=== PATIENT | male | born 1970 | race Hispanic/Latino ===

== ENCOUNTER 2017-01-10 09:29 | Inpatient (IN) | payer OTHER ==
[2017-01-10 09:32] VITALS: BMI 33.2
[2017-01-10] MEDS ORDERED: Sodium Chloride 0.9% 1,000 ML IV STA (09:49)
[2017-01-10 10:29] LABS: BASO # 0.1 K/uL (0.0-0.2); BASO % 1.7 % (0.0-2.0); EOS # 0.2 K/uL (0.0-0.7); EOS % 2.3 % (0.0-4.0); LYMPH # 2.3 K/uL (1.0-4.3); LYMPH % 29.4 % (20.0-40.0); MEAN CELL VOLUME 91.4 fl (80.0-94.0); MEAN CORPUSCULAR HEMOGLOBIN 35.8 pg (27.0-31.0); MEAN CORPUSCULAR HGB CONC 39.2 g/dL (33.0-37.0); MEAN PLATELET VOLUME 11.7 fl (7.2-11.7); MONO # 0.9 K/uL (0.0-0.8); MONO % 11.2 % (0.0-10.0); NEUT # 4.4 K/uL (1.8-7.0); NEUT % 55.4 % (50.0-75.0); NRBC % 0.2 % (0.0-0.0); RBC 4.79 Mil/uL (4.40-5.90); RED CELL DISTRIBUTION WIDTH 14.7 % (11.5-14.5)
--- NOTE | 2017-01-10 10:40 | ED PDOC ---
HPI: Abdomen Time Seen by Provider: 01/10/17 09:40 Chief Complaint (Nursing): Abdominal Pain Chief Complaint (Provider): "Pancreatitis started bothering him" History Per: Patient History/Exam Limitations: no limitations Onset/Duration Of Symptoms: Hrs Outside of [place] travel?: No Current Symptoms Are (Timing): Still Present Additional Complaint(s): George Beatty, a 46 year old male, presents to the ED complaining of abdominal pain. The patients states that he thinks it is his pancreatitits ' acting up". He states that he is currently not taking any pancreatic enzymes. The patient reports he has vomited and he is feeling nauseous. Denies diarrhea, bloody stools, fever, chills, bloody urine. Past Medical History Reviewed: Historical Data, Nursing Documentation, Vital Signs Vital Signs: Last Vital Signs Temp 97.6 F 01/10/17 09:33 Pulse 86 01/10/17 09:33 Resp 18 01/10/17 09:33 BP 173/76 H 01/10/17 09:33 Pulse Ox 98 01/10/17 10:45 - Medical History PMH: Pancreatitis (X2) Denies: HIV - Surgical History Surgical History: No Surg Hx - Family History Family History: States: Unknown Family Hx - Social History Current smoker - smoking cessation education provided: Yes (Wears a patch at work) Alcohol: None - Home Medications Home Medications: Ambulatory Orders Medication Instructions Recorded Aspirin [Aspirin Chewable] 81 mg PO DAILY 06/14/16 Amoxicillin/Clavulanate [Augmentin 1 tab PO BID #10 tab 06/19/16 875 MG-125 MG] GlipiZIDE SR [Glucotrol XL] 5 mg PO BRK #30 tab 06/19/16 - Allergies Allergies/Adverse Reactions: Allergies Allergy/AdvReac Type Severity Reaction Status Date / Time clams Allergy VOMITING Verified 01/10/17 09:34 Review of Systems Constitutional: Negative for: Fever, Chills Gastrointestinal: Positive for: Nausea, Vomiting, Abdominal Pain. Negative for : Diarrhea, Hematochezia Genitourinary Male: Negative for: Hematuria Physical Exam - Reviewed Nursing Documentation Reviewed: Yes Vital Signs Reviewed: Yes - Physical Exam Appears: Positive for: Non-toxic, In Acute Distress Head Exam: Positive for: ATRAUMATIC, NORMAL INSPECTION, NORMOCEPHALIC Skin: Positive for: Normal Color, Warm, Dry Eye Exam: Positive for: Normal appearance, EOMI, PERRL ENT: Positive for: Normal ENT Inspection Neck: Positive for: Normal, Painless ROM, Supple Cardiovascular/Chest: Positive for: Regular Rate, Rhythm, Chest Non Tender. Negative for: Bradycardia, Tachycardia Respiratory: Positive for: Normal Breath Sounds. Negative for: Wheezing, Respiratory Distress Gastrointestinal/Abdominal: Positive for: Tenderness (Exquisite tenderness to LLQ; Mild tenderness to RLQ.), Distended. Negative for: Bowel Sounds Back: Positive for: Normal Inspection Extremity: Positive for: Normal ROM. Negative for: Tenderness, Pedal Edema, Deformity, Swelling Neurologic/Psych: Positive for: Alert, Oriented, Gait - Laboratory Results Result Diagrams: 01/10/17 10:44 01/10/17 10:44 - ECG O2 Sat by Pulse Oximetry: 98 (RA) Pulse Ox Interpretation: Normal Medical Decision Making Medical Decision Makin Initial Impression: 46 year old male presenting with abdominal pain in setting of known pancreatitis Initial Plan: * CMP * Lipase * Udip * CBC * Obstructive Series * Toradol 30mg IV * Morphine 4mg IV * NS 1000mls IV 1000mls/hr * Zofran 4mg IVP * US Abdomen Complete * Reevaluation Scribe Attestation Documented by Anita Rogel acting as a scribe for Rhiannon Ward MD. Provider Attestation: All medical record entries made by the Scribe were at my direction and personally dictated by me. I have reviewed the chart and agree that the record accurately reflects my personal performance of the history, physical exam, medical decision making, and the department course for this patient. I have also personally directed, reviewed, and agree with the discharge instructions and disposition. Disposition - Clinical Impression Clinical Impression: Pancreatitis, acute - Patient ED Disposition Is Patient to be Admitted: Yes Doctor Will See Patient In The: Office Counseled Patient/Family Regarding: Diagnosis, Need For Followup - Disposition Disposition: Transfer of Care Disposition Time: 13:00 Condition: STABLE - Pt Status Changed To: Hospital Disposition Of: Inpatient - Admit Certification Admit to Inpatient:: After my assessment, the patient will require hospitalization for at least two midnights. This is because of the severity of symptoms shown, intensity of services needed, and/or the medical risk in this patient being treated as an outpatient. - POA Present On Arrival: None
[2017-01-10 11:02] LABS: ALB/GLOB RATIO 1.3 (1.0-2.1); ALBUMIN 5.4 g/dL (3.5-5.0); ALT/SGPT 55 U/L (21-72); AST/SGOT 111 U/L (17-59); BLOOD UREA NITROGEN 22 mg/dl (9-20); CALCIUM 8.9 mg/dL (8.4-10.2); GFR AFRICAN-AMERICAN > 60; GFR NON-AFRICAN AMERICAN > 60; LIPASE 1756 U/L (23-300)
[2017-01-10 11:30] LABS: HEMOGLOBIN 17.1 g/dL (12.0-18.0)
[2017-01-10 11:33] LABS: BASO # 0.1 K/uL (0.0-0.2); BASO % 0.6 % (0.0-2.0); EOS # 0.2 K/uL (0.0-0.7); EOS % 1.9 % (0.0-4.0); HEMOGLOBIN 16.7 g/dL (12.0-18.0); LYMPH # 2.3 K/uL (1.0-4.3); LYMPH % 23.9 % (20.0-40.0); MEAN CELL VOLUME 90.1 fl (80.0-94.0); MEAN CORPUSCULAR HEMOGLOBIN 34.1 pg (27.0-31.0); MEAN CORPUSCULAR HGB CONC 37.8 g/dL (33.0-37.0); MEAN PLATELET VOLUME 11.1 fl (7.2-11.7); MONO # 0.5 K/uL (0.0-0.8); MONO % 5.2 % (0.0-10.0); NEUT # 6.6 K/uL (1.8-7.0); NEUT % 68.4 % (50.0-75.0); NRBC % 0.4 % (0.0-0.0); RBC 4.91 Mil/uL (4.40-5.90); RED CELL DISTRIBUTION WIDTH 13.3 % (11.5-14.5); WHITE BLOOD COUNT 9.6 K/uL (4.8-10.8)
--- NOTE | 2017-01-10 13:28 | US ---
HISTORY: history pancreatitis COMPARISON: Comparison made with CT scan of the abdomen and pelvis 06/17/2016. TECHNIQUE: Sonographic evaluation of the abdomen. FINDINGS: LIVER: Liver is enlarged measuring approximately 20 cm in CC dimension. Liver demonstrates smooth contour though increased echotexture likely representing fatty infiltration however other infiltrative hepatocellular disease process not excluded. . No obvious hepatic mass or collection. No ascites. GALLBLADDER: Gallbladder is physiologically distended. No evidence of intraluminal gallbladder calculi. No pericholecystic fluid collections or sonographic Gore sign. COMMON BILE DUCT: Measures 4.5 mm. No stones. No dilatation. PANCREAS: Pancreas is poorly delineated on this exam due to body habitus and bowel gas. RIGHT KIDNEY: Measures approximately 12.9 x 5.2 x 6.2cm. Normal echogenicity. No calculus, mass, or hydronephrosis. LEFT KIDNEY: Measures approximately 13.3 x 6.2 x 5.6cm. Normal echogenicity. No calculus, mass, or hydronephrosis. SPLEEN: Spleen is mildly enlarged measuring approximately 13.6 cm in greatest dimension AORTA: No aneurysmal dilatation. IVC: Unremarkable. OTHER FINDINGS: None. IMPRESSION: Mild hepatosplenomegaly. Probable mild fatty hepatic infiltration however other infiltrative hepatocellular disease process not excluded. Pancreas is not visualized on this study due to body habitus and bowel gas. No evidence of cholelithiasis or nephrolithiasis.
[2017-01-10] MEDS ORDERED: Iohexol 240 (50 ml) PO ONE (14:14)
--- NOTE | 2017-01-10 14:23 | RAD ---
PROCEDURE: Radiographs of the chest and abdomen (obstructive series) HISTORY: abdominal pain COMPARISON: No prior. TECHNIQUE: AP radiograph of the chest, with upright and supine radiographs of the abdomen. FINDINGS: CHEST: Poor inspiration with low lung volumes, mild crowded bronchovascular markings and mild bibasilar atelectasis. Additionally, the interstitial markings are slightly increased and coarsened with a few scattered peribronchial cuffing changes. Rule out sequela of reactive/inflammatory airway disease or viral illness. ABDOMEN AND PELVIS: No evidence of free intraperitoneal air seen under the diaphragmatic surfaces. Nonobstructive/nonspecific bowel gas pattern so far as can be seen. Note that fine soft tissue and bone detail is decreased due to underpenetration and possibly on moderate amount of intraperitoneal fat. Diminish the due to large abdominal pannus seen to better advantage on prior CT scan of the abdomen and pelvis. IMPRESSION: No focal consolidation however some minor bibasilar atelectasis noted. Rule out sequela of reactive/inflammatory airway disease or viral illness as above. No evidence of acute mechanical bowel obstruction so far as can be seen.
[2017-01-10] MEDS: Dextrose 5%/0.45% NS 1,000 ML IV SCH ×2 (16:02→22:45)
[2017-01-10] MEDS ORDERED: Iohexol 300 100 ML IJ ONE (16:10)
[2017-01-10] MEDS ORDERED: Sodium Chloride 0.9% 50 ML IV ONE (16:11)
[2017-01-10] MEDS ORDERED: Iohexol 240 (10 ml) ONE (16:30)
--- NOTE | 2017-01-10 17:38 | CT ---
PROCEDURE: CT abdomen pelvis dated 01/10/2017 HISTORY: abd pain, pancreatitis, persistent pain COMPARISON: None. TECHNIQUE: Contiguous axial images of the abdomen and pelvis performed following oral and intravenous injection of approximately 98 cc of Omnipaque 300 contrast n. Coronal and Sagittal reformats generated. Radiation dose: Total exam DLP = 1906.36 mGy-cm. This CT exam was performed using one or more of the following dose reduction techniques: Automated exposure control, adjustment of the mA and/or kV according to patient size, and/or use of iterative reconstruction technique. FINDINGS: LOWER THORAX: Unremarkable. LIVER: Liver is enlarged measuring approximately 21 cm in CC dimension. Significant fatty hepatic infiltration. There is some minor sparing of fatty infiltration around the gallbladder fossa. No obvious hepatic mass or collection. Portal and splenic veins are opacified. GALLBLADDER AND BILE DUCTS: Gallbladder is physiologically distended. No evidence of intraluminal gallbladder calculi. PANCREAS: Infiltration changes and fluid are seen within the mid peripancreatic mesentery. The pancreas is slightly edematous in appearance. Collective findings are consistent with ongoing pancreatitis. Note however the changes have improved when compared with the prior study. . No evidence of pancreatic pseudocysts or hemorrhagic collections. Infiltration changes and small amount of fluid extend into the splenic hilar region and anterior to the left kidney left para renal space. . There is also extension of these inflammatory changes anteriorly abutting the posterior wall of the stomach. Reactive edema of the posterior wall the stomach not excluded. SPLEEN: Spleen exhibits normal size and attenuation pattern without mass collection or calcification. ADRENALS: No adrenal lesions. KIDNEYS AND URETERS: Kidneys demonstrate symmetric nephrograms. No evidence of nephrolithiasis or hydronephrosis. No obvious renal mass or collection. Fluid and infiltration changes related to at aforementioned pancreatitis seen in the para renal spaces left greater than right. BLADDER: Urinary bladder is incompletely distended which may account for thick-walled appearance. Muscular hypertrophy may contribute. Rule out cystitis versus other intrinsic/invasive wall lesion. REPRODUCTIVE: Unremarkable. Prostate gland exhibits relatively normal size measuring approximately 3.5 cm in transverse dimension. There appears to be a few punctate prostatic calcifications. APPENDIX: Normal-appearing appendix BOWEL: Evaluation of the bowel is somewhat limited due to incomplete opacification. Stomach is distended with oral contrast material. Note that the inflammatory changes from the pancreas extend to the posterior wall of the stomach. Questionable wall thickening of the posterior wall of the stomach above possibly due to the aforementioned inflammatory process of the pancreas. Additionally, there is also mild wall thickening of the duodenum and proximal jejunum possibly reactive as well. Fluid is seen adjacent to the 3rd and 4th portions of the duodenum as well as anterior right para renal space PERITONEUM: As above. No gross free intraperitoneal air. Small fat containing left inguinal hernia. . LYMPH NODES: There are multiple small non scattered mesenteric lymph nodes VASCULATURE: Unremarkable. No aortic aneurysm. BONES: Mild multilevel degenerative spondylosis of the lower thoracic and lumbar spine. OTHER FINDINGS: None. IMPRESSION: Findings are consistent with ongoing pancreatitis with moderate amount of of peripancreatic infiltration and fluid does slightly improved from prior exam. Infiltration changes extend into the left splenic hilar region as well as both para renal spaces left greater than right. There is also extension anteriorly abutting the posterior wall of the stomach which is also slightly thickened possibly reactive in nature. There is wall thickening of the duodenum and proximal jejunum also felt to be reactive. Hepatomegaly with significant fatty infiltration. See above discussion for additional findings and details.
[2017-01-10] MEDS ORDERED: Insulin Regular 100 units/ml ONE (18:05)
[2017-01-10] MEDS: Insulin Lispro (humaLOG) 100 Units/ml Inj SC SCH ×2 (18:06→21:36)
--- NOTE | 2017-01-10 23:48 | CP.PCM.HP ---
History of Present Illness - History of Present Illness History of Present Illness: CC: Abdominal Pain History of Present Illness: A 46yoM with H/O On and off ETOH use presented with Abdominal pain, Epigastric and LUQ pain 10/10 continuous partially relieved with the pain medication he received in the ER. Also Associated N/Vomiting. +Abdominal bloating. Had BMV yesterdays. Passes flatus. Present on Admission - Present on Admission Any Indicators Present on Admission: No History of DVT/PE: No History of Uncontrolled Diabetes: Yes Urinary Catheter: No Decubitus Ulcer Present: No Review of Systems - Review of Systems All systems: reviewed and no additional remarkable complaints except - Gastrointestinal Gastrointestinal: As Per HPI, Abdominal Pain, Bloating, Nausea, Vomiting. absent: Diarrhea Past Patient History - Infectious Disease Hx of Infectious Diseases: None - Past Medical History & Family History Past Medical History?: Yes Past Family History: Reviewed and not pertinent - Past Social History Smoking Status: Light Smoker < 10 Cigarettes Daily Alcohol: Occasional Drugs: Denies - CARDIAC Hx Cardiac Disorders: No - ENDOCRINE/METABOLIC Hx Endocrine Disorders: Yes (DM- no meds for 2 months) Hx Diabetes Mellitus Type 2: Yes - HEMATOLOGICAL/ONCOLOGICAL Hx AIDS: No Hx Human Immunodeficiency Virus (HIV): No - MUSCULOSKELETAL/RHEUMATOLOGICAL Hx Musculoskeletal Disorders: No Hx Falls: No - GASTROINTESTINAL Hx Pancreatitis: Yes (X2) - GENITOURINARY/GYNECOLOGICAL Hx Genitourinary Disorders: No - PSYCHIATRIC Hx Psychophysiologic Disorder: No Hx Substance Use: No - SURGICAL HISTORY Hx Surgeries: Yes Other/Comment: Knee Surgery Right 8 years ago - ANESTHESIA Hx Anesthesia: Yes Hx Anesthesia Reactions: No Meds Home Medications: Home Medication List Medication Instructions Recorded Confirmed Type Fenofibrate [Tricor] 48 mg PO DAILY #30 tab 01/13/17 Rx SITagliptin [Januvia] 100 mg PO DAILY #30 tab 01/13/17 Rx Allergies/Adverse Reactions: Allergies Allergy/AdvReac Type Severity Reaction Status Date / Time clams Allergy VOMITING Verified 01/10/17 09:34 metformin Allergy RASH Verified 01/10/17 18:11 Physical Exam - Constitutional Appears: Well, In Acute Distress - Head Exam Head Exam: ATRAUMATIC, NORMAL INSPECTION, NORMOCEPHALIC - Eye Exam Eye Exam: EOMI, Normal appearance, PERRL Pupil Exam: NORMAL ACCOMODATION, PERRL - ENT Exam ENT Exam: Mucous Membranes Moist, Normal Exam - Neck Exam Neck exam: Positive for: Full Rom, Lymphadenopathy, Normal Inspection - Respiratory Exam Respiratory Exam: Clear to Auscultation Bilateral, NORMAL BREATHING PATTERN. absent: Rales, Wheezes - Cardiovascular Exam Cardiovascular Exam: Tachycardia, REGULAR RHYTHM, +S1, +S2 - GI/Abdominal Exam GI & Abdominal Exam: Distended, Guarding, Normal Bowel Sounds, Tenderness. absent: Rebound, Rigid - Extremities Exam Extremities exam: Positive for: full ROM, normal capillary refill, normal inspection - Back Exam Back exam: NORMAL INSPECTION. absent: CVA tenderness (L), CVA tenderness (R) - Neurological Exam Neurological exam: Alert, CN II-XII Intact, Normal Gait, Oriented x3, Reflexes Normal - Psychiatric Exam Psychiatric exam: Normal Affect, Normal Mood - Skin Skin Exam: Dry, Intact, Normal Color, Warm Results - Vital Signs Recent Vital Signs: Last Vital Signs Temp 98.2 F 01/10/17 18:55 Pulse 98 H 01/10/17 18:55 Resp 18 01/10/17 18:55 BP 120/76 01/10/17 18:55 Pulse Ox 99 01/10/17 18:55 - Labs Result Diagrams: 01/13/17 06:50 01/13/17 06:50 Labs: Laboratory Results - last 24 hr 01/10/17 01/10/17 01/10/17 15:00 17:30 21:12 Potassium 6.0 H 5.3 H POC Glucose (mg/dL) 236 H - Imaging and Cardiology CT Abdomen/Pelvis: Status: Report reviewed by me Additional comment: IMPRESSION: Findings are consistent with ongoing pancreatitis with moderate amount of of peripancreatic infiltration and fluid does slightly improved from prior exam. Infiltration changes extend into the left splenic hilar region as well as both para renal spaces left greater than right. There is also extension anteriorly abutting the posterior wall of the stomach which is also slightly thickened possibly reactive in nature. There is wall thickening of the duodenum and proximal jejunum also felt to be reactive. Hepatomegaly with significant fatty infiltration. See above discussion for additional findings and details. US - abdomen Status: Report reviewed by me Additional comment: IMPRESSION: Mild hepatosplenomegaly. Probable mild fatty hepatic infiltration however other infiltrative hepatocellular disease process not excluded. Pancreas is not visualized on this study due to body habitus and bowel gas. No evidence of cholelithiasis or nephrolithiasis. Chest x-ray Status: Report reviewed by me Additional comment: IMPRESSION: No focal consolidation however some minor bibasilar atelectasis noted. Rule out sequela of reactive/inflammatory airway disease or viral illness as above. No evidence of acute mechanical bowel obstruction so far as can be seen. Assessment & Plan (1) Pancreatitis, acute Assessment and Plan: Med/surge NPO IVF IV Dilaudid Lipid Profile GI Consult Status: Acute (2) Diabetes mellitus Assessment and Plan: Non-Compliant To medications and Follow UP Continue Glipizide Accucheck with SS Coverage q6hrs HgA1C Status: Chronic (3) Obesity Assessment and Plan: Counselled Diet Status: Chronic
[2017-01-11] MEDS: Dextrose 5%/0.45% NS 1,000 ML IV SCH ×3 (00:56→08:49)
[2017-01-11 07:43] LABS: BASO % 0.4 % (0.0-2.0); EOS # 0.2 K/uL (0.0-0.7); EOS % 1.4 % (0.0-4.0); HEMOGLOBIN 14.1 g/dL (12.0-18.0); LYMPH # 2.3 K/uL (1.0-4.3); LYMPH % 19.2 % (20.0-40.0); MEAN CELL VOLUME 90.5 fl (80.0-94.0); MEAN CORPUSCULAR HEMOGLOBIN 31.3 pg (27.0-31.0); MEAN CORPUSCULAR HGB CONC 34.6 g/dL (33.0-37.0); MEAN PLATELET VOLUME 9.6 fl (7.2-11.7); MONO # 0.9 K/uL (0.0-0.8); MONO % 7.3 % (0.0-10.0); NEUT # 8.7 K/uL (1.8-7.0); NEUT % 71.7 % (50.0-75.0); NRBC % 0.1 % (0.0-0.0); RBC 4.5 Mil/uL (4.40-5.90); RED CELL DISTRIBUTION WIDTH 12.9 % (11.5-14.5); WHITE BLOOD COUNT 12.1 K/uL (4.8-10.8)
[2017-01-11 07:49] LABS: MAGNESIUM 1.9 MG/DL (1.6-2.3)
[2017-01-11] MEDS: Enoxaparin 40 mg Syringe SC SCH (08:49)
[2017-01-11] MEDS: GlipiZIDE 5 mg SR Tab PO SCH (08:49)
[2017-01-11] MEDS: Insulin Lispro (humaLOG) 100 Units/ml Inj SC SCH ×5 (08:50→22:28)
--- NOTE | 2017-01-11 10:20 | CARD ---
APPROVED REPORT EKG Measurement Heart [id number] <Conclusion> Normal sinus rhythm Incomplete right bundle branch block Nonspecific T wave abnormality Abnormal ECG
--- NOTE | 2017-01-11 17:00 | CP.PCM.PN ---
Subjective - Date & Time of Evaluation Date of Evaluation: 01/11/17 Time of Evaluation: 17:00 - Subjective Subjective: Seen and Examined at the bed side. Still C/O Pain 8-10/10 , abdominal distention and not feeling hungry. Denies fever or chills. Objective - Vital Signs/Intake and Output Vital Signs (last 24 hours): Temp Pulse Resp BP Pulse Ox 99.2 F 102 H 20 107/70 95 01/11/17 16:24 01/11/17 16:24 01/11/17 16:24 01/11/17 16:24 01/11/17 16:24 - Medications Medications: Current Medications Aspirin (Aspirin Chewable) 81 mg PO DAILY [facility] Last Admin: 01/11/17 08:49 Dose: 81 mg Enoxaparin Sodium (Lovenox) 40 mg SC DAILY [facility] PRN Reason: Protocol Last Admin: 01/11/17 08:49 Dose: 40 mg Fenofibrate (Tricor) 48 mg PO DAILY [facility] Glipizide (Glucotrol Xl) 5 mg PO BRK [facility] Last Admin: 01/11/17 08:49 Dose: 5 mg Hydromorphone HCl (Dilaudid) 2 mg IVP Q4 PRN PRN Reason: Pain, severe (8-10) Last Admin: 01/11/17 13:36 Dose: 2 mg Dextrose/Sodium Chloride (Dextrose 5%/0.9% Ns 1000 Ml) 1,000 mls @ 125 mls/hr IV .Q8H [facility] Stop: 01/12/17 16:58 Insulin Human Lispro (Humalog) 0 units SC ACHS [facility] PRN Reason: Protocol Last Admin: 01/11/17 16:09 Dose: Not Given Morphine Sulfate (Morphine) 2 mg IVP Q4 PRN PRN Reason: Pain, severe (8-10) Ondansetron HCl (Zofran Inj) 4 mg IVP Q6 PRN PRN Reason: Nausea/Vomiting Last Admin: 01/11/17 08:50 Dose: 4 mg Pantoprazole Sodium (Protonix Inj) 40 mg IVP DAILY [facility] Last Admin: 01/11/17 08:49 Dose: 40 mg - Labs Labs: 01/11/17 06:00 01/10/17 17:30 - Constitutional Appears: In Acute Distress - Head Exam Head Exam: ATRAUMATIC, NORMAL INSPECTION, NORMOCEPHALIC - Eye Exam Eye Exam: EOMI, Normal appearance, PERRL Pupil Exam: NORMAL ACCOMODATION, PERRL - ENT Exam ENT Exam: Mucous Membranes Moist, Normal Exam - Neck Exam Neck Exam: Full ROM, Normal Inspection. absent: Lymphadenopathy - Respiratory Exam Respiratory Exam: Clear to Ausculation Bilateral, NORMAL BREATHING PATTERN - Cardiovascular Exam Cardiovascular Exam: Tachycardia, REGULAR RHYTHM, +S1, +S2. absent: Murmur - GI/Abdominal Exam GI & Abdominal Exam: Distended, Guarding, Tenderness, Normal Bowel Sounds - Extremities Exam Extremities Exam: Full ROM, Normal Capillary Refill, Normal Inspection. absent : Joint Swelling, Pedal Edema - Back Exam Back Exam: NORMAL INSPECTION. absent: CVA tenderness (L), CVA tenderness (R) - Neurological Exam Neurological Exam: Alert, Awake, CN II-XII Intact, Normal Gait, Oriented x3 Neuro motor strength exam: Left Upper Extremity: 5, Right Upper Extremity: 5, Left Lower Extremity: 5, Right Lower Extremity: 5 - Psychiatric Exam Psychiatric exam: Normal Affect, Normal Mood - Skin Skin Exam: Dry, Intact, Normal Color, Warm Assessment and Plan (1) Pancreatitis, acute Assessment & Plan: Continue Current Care Repeat CBCD/BMP/Lipase Status: Acute (2) Diabetes mellitus Assessment & Plan: Continue Current Care Status: Chronic (3) Obesity Assessment & Plan: Counselled Status: Chronic (4) Hypertriglyceridemia Assessment & Plan: Start Triglyceride Can be additional etiology for Pancreatitis Status: Acute
[2017-01-11] MEDS: Dextrose 5%/0.9% NS 1,000 ML IV SCH (17:19)
[2017-01-11 17:20] LABS: BASO # 0.1 K/uL (0.0-0.2); BASO % 0.5 % (0.0-2.0); EOS # 0.3 K/uL (0.0-0.7); EOS % 2.4 % (0.0-4.0); HEMOGLOBIN 13.6 g/dL (12.0-18.0); LYMPH % 25.2 % (20.0-40.0); MEAN CELL VOLUME 90.7 fl (80.0-94.0); MEAN CORPUSCULAR HEMOGLOBIN 31.4 pg (27.0-31.0); MEAN CORPUSCULAR HGB CONC 34.7 g/dL (33.0-37.0); MONO % 8.9 % (0.0-10.0); NEUT # 7.4 K/uL (1.8-7.0); NRBC % 0.1 % (0.0-0.0); RBC 4.32 Mil/uL (4.40-5.90); WHITE BLOOD COUNT 11.8 K/uL (4.8-10.8)
[2017-01-11 17:36] LABS: BLOOD UREA NITROGEN 14 mg/dl (9-20); CALCIUM 8.8 mg/dL (8.4-10.2); GFR AFRICAN-AMERICAN > 60; GFR NON-AFRICAN AMERICAN > 60; LIPASE 721 U/L (23-300)
[2017-01-11] MEDS: Morphine 4 MG/ML VIAL IVP PRN (22:04)
[2017-01-12] MEDS: Dextrose 5%/0.9% NS 1,000 ML IV SCH ×2 (01:22→17:05)
[2017-01-12] MEDS: Morphine 4 MG/ML VIAL IVP PRN (02:47)
[2017-01-12 07:08] LABS: BASO # 0.1 K/uL (0.0-0.2); BASO % 0.5 % (0.0-2.0); EOS # 0.3 K/uL (0.0-0.7); EOS % 3.2 % (0.0-4.0); HEMOGLOBIN 12.9 g/dL (12.0-18.0); LYMPH # 3.2 K/uL (1.0-4.3); LYMPH % 30.1 % (20.0-40.0); MEAN CELL VOLUME 91.8 fl (80.0-94.0); MEAN CORPUSCULAR HEMOGLOBIN 31.7 pg (27.0-31.0); MEAN CORPUSCULAR HGB CONC 34.5 g/dL (33.0-37.0); MEAN PLATELET VOLUME 9.5 fl (7.2-11.7); MONO # 1.2 K/uL (0.0-0.8); MONO % 11.2 % (0.0-10.0); NEUT # 5.8 K/uL (1.8-7.0); RBC 4.07 Mil/uL (4.40-5.90); RED CELL DISTRIBUTION WIDTH 12.8 % (11.5-14.5); WHITE BLOOD COUNT 10.6 K/uL (4.8-10.8)
[2017-01-12] MEDS: Insulin Lispro (humaLOG) 100 Units/ml Inj SC SCH ×4 (07:30→22:10)
[2017-01-12 08:08] LABS: BLOOD UREA NITROGEN 12 mg/dl (9-20); CALCIUM 8.7 mg/dL (8.4-10.2); GFR AFRICAN-AMERICAN > 60; GFR NON-AFRICAN AMERICAN > 60; LIPASE 476 U/L (23-300)
[2017-01-12] MEDS: GlipiZIDE 5 mg SR Tab PO SCH (08:48)
[2017-01-12] MEDS: Enoxaparin 40 mg Syringe SC SCH (10:04)
--- NOTE | 2017-01-12 13:15 | CP.PCM.CON ---
History of Present Illness - History of Present Illness History of Present Illness: 46 yo male with past history of pancreatitis coming to the ER with abdominal pain. He states he is not drinking alcohol but has been eating steak lately. 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 Review of Systems - Constitutional Constitutional: absent: Chills - EENT Eyes: absent: Blurred Vision Ears: absent: Decreased Hearing Nose/Mouth/Throat: absent: Epistaxis - Cardiovascular Cardiovascular: absent: Chest Pain - Respiratory Respiratory: absent: Dyspnea - Gastrointestinal Gastrointestinal: As Per HPI - Genitourinary Genitourinary: absent: Change in Urinary Stream Past Patient History - Infectious Disease Hx of Infectious Diseases: None - Past Medical History & Family History Past Medical History?: Yes - Past Social History Smoking Status: Light Smoker < 10 Cigarettes Daily - CARDIAC Hx Cardiac Disorders: No - ENDOCRINE/METABOLIC Hx Endocrine Disorders: Yes (DM- no meds for 2 months) Hx Diabetes Mellitus Type 2: Yes - HEMATOLOGICAL/ONCOLOGICAL Hx AIDS: No Hx Human Immunodeficiency Virus (HIV): No - MUSCULOSKELETAL/RHEUMATOLOGICAL Hx Musculoskeletal Disorders: No Hx Falls: No - GASTROINTESTINAL Hx Pancreatitis: Yes (X2) - GENITOURINARY/GYNECOLOGICAL Hx Genitourinary Disorders: No - PSYCHIATRIC Hx Psychophysiologic Disorder: No Hx Substance Use: No - SURGICAL HISTORY Hx Surgeries: Yes Other/Comment: Knee Surgery Right 8 years ago - ANESTHESIA Hx Anesthesia: Yes Hx Anesthesia Reactions: No Meds Allergies/Adverse Reactions: Allergies Allergy/AdvReac Type Severity Reaction Status Date / Time clams Allergy VOMITING Verified 01/10/17 09:34 metformin Allergy RASH Verified 01/10/17 18:11 - Medications Medications: Current Medications Aspirin (Aspirin Chewable) 81 mg PO DAILY [facility] Last Admin: 01/12/17 08:47 Dose: 81 mg Enoxaparin Sodium (Lovenox) 40 mg SC DAILY [facility] PRN Reason: Protocol Last Admin: 01/11/17 08:49 Dose: 40 mg Fenofibrate (Tricor) 48 mg PO DAILY [facility] Last Admin: 01/12/17 08:49 Dose: 48 mg Glipizide (Glucotrol Xl) 5 mg PO BRK [facility] Last Admin: 01/12/17 08:48 Dose: 5 mg Hydromorphone HCl (Dilaudid) 2 mg IVP Q4 PRN PRN Reason: Pain, severe (8-10) Last Admin: 01/12/17 08:44 Dose: 2 mg Dextrose/Sodium Chloride (Dextrose 5%/0.9% Ns 1000 Ml) 1,000 mls @ 125 mls/hr IV .Q8H [facility] Stop: 01/12/17 16:58 Last Admin: 01/12/17 01:22 Dose: 125 mls/hr Insulin Human Lispro (Humalog) 0 units SC ACHS [facility] PRN Reason: Protocol Last Admin: 01/12/17 07:30 Dose: 1 unit Morphine Sulfate (Morphine) 2 mg IVP Q4 PRN PRN Reason: Pain, severe (8-10) Last Admin: 01/12/17 02:47 Dose: 2 mg Ondansetron HCl (Zofran Inj) 4 mg IVP Q6 PRN PRN Reason: Nausea/Vomiting Last Admin: 01/11/17 08:50 Dose: 4 mg Pantoprazole Sodium (Protonix Inj) 40 mg IVP DAILY [facility] Last Admin: 01/12/17 08:49 Dose: 40 mg Physical Exam - Constitutional Appears: Well - Head Exam Head Exam: ATRAUMATIC - Eye Exam Eye Exam: Normal appearance - ENT Exam ENT Exam: Mucous Membranes Moist - Neck Exam Neck exam: Positive for: Normal Inspection - Respiratory Exam Respiratory Exam: Clear to Auscultation Bilateral - Cardiovascular Exam Cardiovascular Exam: REGULAR RHYTHM, +S1, +S2 - GI/Abdominal Exam GI & Abdominal Exam: Normal Bowel Sounds, Soft, Tenderness Additional comments: moderate epigastric tenderness Results - Vital Signs Recent Vital Signs: Last Vital Signs Temp 98 F 01/12/17 09:16 Pulse 75 01/12/17 09:16 Resp 20 01/12/17 09:16 BP 97/64 L 01/12/17 09:16 Pulse Ox 99 01/12/17 09:16 - Labs Result Diagrams: 01/12/17 06:00 01/12/17 06:00 Labs: Laboratory Results - last 24 hr 01/10/17 01/11/17 01/11/17 16:21 15:15 17:00 WBC 11.8 H RBC 4.32 L Hgb 13.6 Hct 39.2 MCV 90.7 MCH 31.4 H MCHC 34.7 RDW 13.0 Plt Count 138 MPV 9.0 Neut % (Auto) 63.0 Lymph % (Auto) 25.2 Amador % (Auto) 8.9 Eos % (Auto) 2.4 Baso % (Auto) 0.5 Neut # 7.4 H Lymph # 3.0 Amador # 1.0 H Eos # 0.3 Baso # 0.1 Sodium Potassium Chloride Carbon Dioxide Anion Gap BUN Creatinine Est GFR ( Amer) Est GFR (Non-Af Amer) POC Glucose (mg/dL) 165 H 113 H Random Glucose Hemoglobin A1c Calcium Lipase 01/11/17 01/11/17 01/11/17 17:00 18:00 22:00 WBC RBC Hgb Hct MCV MCH MCHC RDW Plt Count MPV Neut % (Auto) Lymph % (Auto) Amador % (Auto) Eos % (Auto) Baso % (Auto) Neut # Lymph # Amador # Eos # Baso # Sodium 138 Potassium 3.7 Chloride 102 Carbon Dioxide 30 Anion Gap 10 BUN 14 Creatinine 0.9 Est GFR ( Amer) > 60 Est GFR (Non-Af Amer) > 60 POC Glucose (mg/dL) 137 H Random Glucose 91 Hemoglobin A1c 8.3 H D Calcium 8.8 Lipase 721 H 01/12/17 01/12/17 01/12/17 05:24 06:00 06:00 WBC 10.6 RBC 4.07 L Hgb 12.9 Hct 37.4 MCV 91.8 MCH 31.7 H MCHC 34.5 RDW 12.8 Plt Count 130 MPV 9.5 Neut % (Auto) 55.0 Lymph % (Auto) 30.1 Amador % (Auto) 11.2 H Eos % (Auto) 3.2 Baso % (Auto) 0.5 Neut # 5.8 Lymph # 3.2 Amador # 1.2 H Eos # 0.3 Baso # 0.1 Sodium 141 Potassium 4.0 Chloride 105 Carbon Dioxide 27 Anion Gap 13 BUN 12 Creatinine 0.8 Est GFR ( Amer) > 60 Est GFR (Non-Af Amer) > 60 POC Glucose (mg/dL) 178 H Random Glucose 169 H Hemoglobin A1c Calcium 8.7 Lipase 476 H 01/12/17 10:52 WBC RBC Hgb Hct MCV MCH MCHC RDW Plt Count MPV Neut % (Auto) Lymph % (Auto) Amador % (Auto) Eos % (Auto) Baso % (Auto) Neut # Lymph # Amador # Eos # Baso # Sodium Potassium Chloride Carbon Dioxide Anion Gap BUN Creatinine Est GFR ( Amer) Est GFR (Non-Af Amer) POC Glucose (mg/dL) 179 H Random Glucose Hemoglobin A1c Calcium Lipase Assessment & Plan (1) Pancreatitis, acute Assessment and Plan: Acute pancreatitis possibly due to high fat diet. Lipase better today. Will start on clears. Continue IV hydration. Status: Acute
--- NOTE | 2017-01-12 17:54 | CP.PCM.PN ---
Subjective - Date & Time of Evaluation Date of Evaluation: 01/12/17 Time of Evaluation: 17:30 - Subjective Subjective: Seen and examined at the bed side. Still C/O Abdominal Pain but a little bit better to 8/10. Denies fever or chills. Tolerating clear liquid since morning. Objective - Vital Signs/Intake and Output Vital Signs (last 24 hours): Temp Pulse Resp BP Pulse Ox 98.7 F 85 18 126/85 97 01/12/17 16:30 01/12/17 16:30 01/12/17 16:30 01/12/17 16:30 01/12/17 16:30 - Medications Medications: Current Medications Aspirin (Aspirin Chewable) 81 mg PO DAILY [facility] Last Admin: 01/12/17 08:47 Dose: 81 mg Enoxaparin Sodium (Lovenox) 40 mg SC DAILY [facility] PRN Reason: Protocol Last Admin: 01/12/17 10:04 Dose: Not Given Fenofibrate (Tricor) 48 mg PO DAILY [facility] Last Admin: 01/12/17 08:49 Dose: 48 mg Hydromorphone HCl (Dilaudid) 2 mg IVP Q4 PRN PRN Reason: Pain, severe (8-10) Last Admin: 01/12/17 08:44 Dose: 2 mg Insulin Human Lispro (Humalog) 0 units SC ACHS [facility] PRN Reason: Protocol Last Admin: 01/12/17 17:03 Dose: Not Given Morphine Sulfate (Morphine) 2 mg IVP Q4 PRN PRN Reason: Pain, severe (8-10) Last Admin: 01/12/17 02:47 Dose: 2 mg Ondansetron HCl (Zofran Inj) 4 mg IVP Q6 PRN PRN Reason: Nausea/Vomiting Last Admin: 01/11/17 08:50 Dose: 4 mg Pantoprazole Sodium (Protonix Inj) 40 mg IVP DAILY [facility] Last Admin: 01/12/17 08:49 Dose: 40 mg Sitagliptin Phosphate (Januvia) 100 mg PO DAILY [facility] - Labs Labs: 01/12/17 06:00 01/12/17 06:00 - Constitutional Appears: In Acute Distress - Head Exam Head Exam: ATRAUMATIC, NORMAL INSPECTION, NORMOCEPHALIC - Eye Exam Eye Exam: EOMI, Normal appearance, PERRL Pupil Exam: NORMAL ACCOMODATION, PERRL - ENT Exam ENT Exam: Mucous Membranes Moist, Normal Exam - Neck Exam Neck Exam: Full ROM, Normal Inspection. absent: Lymphadenopathy - Respiratory Exam Respiratory Exam: Clear to Ausculation Bilateral, NORMAL BREATHING PATTERN - Cardiovascular Exam Cardiovascular Exam: REGULAR RHYTHM, +S1, +S2. absent: Murmur - GI/Abdominal Exam GI & Abdominal Exam: Distended, Guarding, Soft, Tenderness - Extremities Exam Extremities Exam: Full ROM, Normal Capillary Refill, Normal Inspection. absent : Joint Swelling, Pedal Edema - Back Exam Back Exam: Full ROM, NORMAL INSPECTION - Neurological Exam Neurological Exam: Alert, Awake, CN II-XII Intact, Normal Gait, Oriented x3 Neuro motor strength exam: Left Upper Extremity: 5, Right Upper Extremity: 5, Left Lower Extremity: 5, Right Lower Extremity: 5 - Psychiatric Exam Psychiatric exam: Normal Affect, Normal Mood - Skin Skin Exam: Dry, Intact, Normal Color, Warm Assessment and Plan (1) Pancreatitis, acute Assessment & Plan: Start Clear Liquid Diet Lipase Trending Down Continue Current Care Repeat CBC with Diff/BMP/Lipase Status: Acute (2) Diabetes mellitus Assessment & Plan: Continue Current Care Status: Chronic (3) Obesity Assessment & Plan: Counselled Status: Chronic (4) Hypertriglyceridemia Assessment & Plan: Start Triglyceride Can be additional Etiology for Pancreatitis Status: Acute
[2017-01-13 07:29] LABS: ALB/GLOB RATIO 1.2 (1.0-2.1); ALBUMIN 3.9 g/dL (3.5-5.0); ALT/SGPT 54 U/L (21-72); AMYLASE 106 U/L (30-110); AST/SGOT 27 U/L (17-59); BLOOD UREA NITROGEN 9 mg/dl (9-20); CALCIUM 9.2 mg/dL (8.4-10.2); GFR AFRICAN-AMERICAN > 60; GFR NON-AFRICAN AMERICAN > 60
[2017-01-13 07:42] LABS: BASO % 0.6 % (0.0-2.0); EOS # 0.4 K/uL (0.0-0.7); EOS % 5.3 % (0.0-4.0); HEMOGLOBIN 13.8 g/dL (12.0-18.0); LYMPH # 2.3 K/uL (1.0-4.3); LYMPH % 31.4 % (20.0-40.0); MEAN CELL VOLUME 91.5 fl (80.0-94.0); MEAN CORPUSCULAR HEMOGLOBIN 31.1 pg (27.0-31.0); MEAN PLATELET VOLUME 9.8 fl (7.2-11.7); MONO # 0.7 K/uL (0.0-0.8); MONO % 9.9 % (0.0-10.0); NEUT # 3.9 K/uL (1.8-7.0); NEUT % 52.8 % (50.0-75.0); NRBC % 0.1 % (0.0-0.0); RBC 4.43 Mil/uL (4.40-5.90); RED CELL DISTRIBUTION WIDTH 12.7 % (11.5-14.5); WHITE BLOOD COUNT 7.3 K/uL (4.8-10.8)
[2017-01-13 08:06] VITALS: BP 125/85; PULSE 74; RESP 20; TEMP 97.7; O2SAT 95
[2017-01-13] MEDS ORDERED: Dextrose 5%/0.9% NS 1,000 ML IV SCH (08:30)
[2017-01-13] MEDS: Enoxaparin 40 mg Syringe SC SCH ×2 (09:00→09:03)
[2017-01-13] MEDS: Insulin Lispro (humaLOG) 100 Units/ml Inj SC SCH (09:01)
--- NOTE | 2017-01-13 09:32 | CP.PCM.PN ---
Subjective - Date & Time of Evaluation Date of Evaluation: 01/13/17 Time of Evaluation: 09:30 - Subjective Subjective: Feeling better. Minimal abdominal discomfort. Objective - Vital Signs/Intake and Output Vital Signs (last 24 hours): Temp Pulse Resp BP Pulse Ox 97.7 F 74 20 125/85 95 01/13/17 08:06 01/13/17 08:06 01/13/17 08:06 01/13/17 08:06 01/13/17 08:06 - Medications Medications: Current Medications Aspirin (Aspirin Chewable) 81 mg PO DAILY [facility] Last Admin: 01/13/17 09:00 Dose: 81 mg Enoxaparin Sodium (Lovenox) 40 mg SC DAILY [facility] PRN Reason: Protocol Last Admin: 01/13/17 09:03 Dose: Not Given Fenofibrate (Tricor) 48 mg PO DAILY [facility] Last Admin: 01/13/17 09:00 Dose: 48 mg Hydromorphone HCl (Dilaudid) 2 mg IVP Q4 PRN PRN Reason: Pain, severe (8-10) Last Admin: 01/12/17 08:44 Dose: 2 mg Dextrose/Sodium Chloride (Dextrose 5%/0.9% Ns 1000 Ml) 1,000 mls @ 125 mls/hr IV .Q8H [facility] Stop: 01/14/17 08:27 Last Admin: 01/13/17 09:01 Dose: 125 mls/hr Insulin Human Lispro (Humalog) 0 units SC ACHS [facility] PRN Reason: Protocol Last Admin: 01/13/17 09:01 Dose: 2 unit Morphine Sulfate (Morphine) 2 mg IVP Q4 PRN PRN Reason: Pain, severe (8-10) Last Admin: 01/12/17 02:47 Dose: 2 mg Ondansetron HCl (Zofran Inj) 4 mg IVP Q6 PRN PRN Reason: Nausea/Vomiting Last Admin: 01/11/17 08:50 Dose: 4 mg Pantoprazole Sodium (Protonix Inj) 40 mg IVP DAILY [facility] Last Admin: 01/13/17 09:00 Dose: 40 mg Sitagliptin Phosphate (Januvia) 100 mg PO DAILY [facility] Last Admin: 01/13/17 09:00 Dose: 100 mg - Labs Labs: 01/13/17 06:50 01/13/17 06:50 - Head Exam Head Exam: ATRAUMATIC - ENT Exam ENT Exam: Mucous Membranes Moist - Neck Exam Neck Exam: Normal Inspection - Respiratory Exam Respiratory Exam: NORMAL BREATHING PATTERN - Cardiovascular Exam Cardiovascular Exam: REGULAR RHYTHM - GI/Abdominal Exam GI & Abdominal Exam: Soft, Normal Bowel Sounds. absent: Tenderness Assessment and Plan (1) Pancreatitis, acute Assessment & Plan: Amylase is normal and patient feels good. Advance to low fat diet now and at home. May be discharged. Status: Acute
--- NOTE | 2017-01-13 11:47 | CP.PCM.DIS ---
Provider - Provider Date of Admission: 01/10/17 13:21 Attending physician: Ahmet Viramontes MD Time Spent in preparation of Discharge (in minutes): 20 Hospital Course - Lab Results Lab Results: Most Recent Lab Values WBC 7.3 K/uL (4.8-10.8) 01/13/17 06:50 RBC 4.43 Mil/uL (4.40-5.90) 01/13/17 06:50 Hgb 13.8 g/dL (12.0-18.0) 01/13/17 06:50 Hct 40.5 % (35.0-51.0) 01/13/17 06:50 MCV 91.5 fl (80.0-94.0) 01/13/17 06:50 MCH 31.1 pg (27.0-31.0) H 01/13/17 06:50 MCHC 34.0 g/dL (33.0-37.0) 01/13/17 06:50 RDW 12.7 % (11.5-14.5) 01/13/17 06:50 Plt Count 146 K/uL (130-400) 01/13/17 06:50 MPV 9.8 fl (7.2-11.7) 01/13/17 06:50 Neut % (Auto) 52.8 % (50.0-75.0) 01/13/17 06:50 Lymph % (Auto) 31.4 % (20.0-40.0) 01/13/17 06:50 Drew % (Auto) 9.9 % (0.0-10.0) 01/13/17 06:50 Eos % (Auto) 5.3 % (0.0-4.0) H 01/13/17 06:50 Baso % (Auto) 0.6 % (0.0-2.0) 01/13/17 06:50 Neut # 3.9 K/uL (1.8-7.0) 01/13/17 06:50 Lymph # 2.3 K/uL (1.0-4.3) 01/13/17 06:50 Drew # 0.7 K/uL (0.0-0.8) 01/13/17 06:50 Eos # 0.4 K/uL (0.0-0.7) 01/13/17 06:50 Baso # 0.0 K/uL (0.0-0.2) 01/13/17 06:50 Sodium 143 mmol/l (132-148) 01/13/17 06:50 Potassium 4.3 MMOL/L (3.6-5.0) 01/13/17 06:50 Chloride 108 mmol/L (98-107) H 01/13/17 06:50 Carbon Dioxide 26 mmol/L (22-30) 01/13/17 06:50 Anion Gap 13 (10-20) 01/13/17 06:50 BUN 9 mg/dl (9-20) 01/13/17 06:50 Creatinine 0.8 mg/dL (0.8-1.5) 01/13/17 06:50 Est GFR ( Amer) > 60 01/13/17 06:50 Est GFR (Non-Af Amer) > 60 01/13/17 06:50 POC Glucose (mg/dL) 205 mg/dL (65-110) H 01/13/17 06:22 Random Glucose 178 mg/dL (75-110) H 01/13/17 06:50 Hemoglobin A1c 8.3 % (4.2-6.5) H D 01/11/17 18:00 Calcium 9.2 mg/dL (8.4-10.2) 01/13/17 06:50 Magnesium 1.9 MG/DL (1.6-2.3) 01/11/17 06:00 Total Bilirubin 0.7 mg/dl (0.2-1.3) 01/13/17 06:50 AST 27 U/L (17-59) 01/13/17 06:50 ALT 54 U/L (21-72) 01/13/17 06:50 Alkaline Phosphatase 67 U/L (38-126) 01/13/17 06:50 Lactate Dehydrogenase 429 U/L (313-618) 01/11/17 06:00 Total Protein 7.2 G/DL (6.3-8.2) 01/13/17 06:50 Albumin 3.9 g/dL (3.5-5.0) 01/13/17 06:50 Globulin 3.3 gm/dL (2.2-3.9) 01/13/17 06:50 Albumin/Globulin Ratio 1.2 (1.0-2.1) 01/13/17 06:50 Triglycerides 453 mg/DL (0-149) H D 01/11/17 06:00 Cholesterol 194 mg/dL (0-199) 01/11/17 06:00 LDL Cholesterol Direct 58 mg/dL (0-129) 01/11/17 06:00 HDL Cholesterol 44 MG/DL (30-70) 01/11/17 06:00 Amylase 106 U/L (30-110) 01/13/17 06:50 Lipase 476 U/L (23-300) H 01/12/17 06:00 - Hospital Course Hospital Course: A 46yoM with H/O DM, Pancreatitis and dyslipidemia presented with Abdominal pain /Vomting., and found to have acute Pancreatitis, and Rx with Pain Medicine, IVF , IV Zofran, Pain medication. felt better and tolerated Diet. Discharge Exam - Head Exam Head Exam: ATRAUMATIC - Eye Exam Eye Exam: EOMI, Normal appearance, PERRL Pupil Exam: NORMAL ACCOMODATION, PERRL - Cardiovascular Exam Cardiovascular Exam: +S1, +S2 - GI/Abdominal Exam GI & Abdominal Exam: Normal Bowel Sounds - Neurological Exam Neurological exam: Alert, CN II-XII Intact, Normal Gait, Oriented x3, Reflexes Normal - Psychiatric Exam Psychiatric exam: Normal Affect, Normal Mood - Skin Skin Exam: Dry, Intact, Normal Color, Warm Discharge Plan - Discharge Medications Prescriptions: SITagliptin [Januvia] 100 mg PO DAILY #30 tab Fenofibrate [Tricor] 48 mg PO DAILY #30 tab - Follow Up Plan Condition: STABLE Disposition: HOME/ ROUTINE Instructions: Pancreatitis (DC), Diabetes Mellitus Type 2 in Adults (DC) Additional Instructions: follow up with dr viramontes in 1 wk follow up with dr marmolejo in 1-2wks Referrals: Lui Marmolejo MD [Staff Provider] - Ahmet Viramontes MD [Staff Provider] -
== END 2017-01-13 10:06 | disposition home or self-care (01) | DRG 440 ==
LOC: H.ER 09:29 → H.ERHOLD 13:21 → H.MEDSURG1 18:46
PROVIDERS: ADMIT Internal Medicine; ATTEND Internal Medicine
DX: K85.90 Acute pancreatitis without necrosis or infection, unspecified (principal); R16.2 Hepatomegaly with splenomegaly, not elsewhere classified; E11.9 Type 2 diabetes mellitus without complications; E78.5 Hyperlipidemia, unspecified; R14.0 Abdominal distension (gaseous); F17.210 Nicotine dependence, cigarettes, uncomplicated; Z91.19 Patient's noncompliance with other medical treatment and regimen; E66.9 Obesity, unspecified; Z68.33 Body mass index [BMI] 33.0-33.9, adult

== ENCOUNTER 2017-07-03 12:39 | Inpatient (IN) | payer OTHER ==
[2017-07-03 12:39] VITALS: BMI 33.2
[2017-07-03] MEDS ORDERED: Sodium Chloride 0.9% 1,000 ML IV STA (12:56)
[2017-07-03 13:09] LABS: VENOUS BLOOD GAS BASE EXCESS -1.4 mmol/L (0.0-2.0); VENOUS BLOOD GAS PCO2 37 mmHg (40-60); VENOUS BLOOD GAS PO2 44 mm/Hg (30-55)
--- NOTE | 2017-07-03 13:17 | ED PDOC ---
HPI: Abdomen Time Seen by Provider: 07/03/17 12:45 Chief Complaint (Nursing): Abdominal Pain Chief Complaint (Provider): Abdominal Pain History Per: Patient History/Exam Limitations: no limitations Onset/Duration Of Symptoms: Hrs (x4) Current Symptoms Are (Timing): Still Present Additional Complaint(s): George Beatty is a 47 year old male with a history of pancreatitis that presents to the ED with a chief complaint of abdominal pain that began at 9 AM this morning. Patient reports that he has not been on medication for 2 months because he has allergies to Metformin and Januvia, and attributes his current symptoms to eating badly during Krist[place]. Patient denies any fever, vomiting, or chills. Of Note: Patient reports that he was last admitted for pancreatitis in January 2017. Past Medical History Reviewed: Historical Data, Nursing Documentation, Vital Signs Vital Signs: Last Vital Signs Temp 98.6 F 07/03/17 15:38 Pulse 93 H 07/03/17 15:38 Resp 18 07/03/17 15:38 BP 108/68 07/03/17 15:38 Pulse Ox 96 07/03/17 15:38 - Medical History PMH: Pancreatitis (X2) Denies: HIV - Family History Family History: States: Unknown Family Hx - Home Medications Home Medications: Ambulatory Orders Medication Instructions Recorded Aspirin [Ecotrin] 81 mg PO DAILY 07/03/17 Fenofibrate [Tricor] 48 mg PO DAILY 07/03/17 - Allergies Allergies/Adverse Reactions: Allergies Allergy/AdvReac Type Severity Reaction Status Date / Time clams Allergy VOMITING Verified 07/03/17 12:46 metformin Allergy RASH Verified 07/03/17 12:46 sitagliptin [From Januvia] Allergy RASH Verified 07/03/17 12:46 Review of Systems Constitutional: Negative for: Fever, Chills Gastrointestinal: Positive for: Abdominal Pain. Negative for: Vomiting Physical Exam - Reviewed Nursing Documentation Reviewed: Yes Vital Signs Reviewed: Yes - Physical Exam Appears: Positive for: Non-toxic, No Acute Distress Head Exam: Positive for: ATRAUMATIC, NORMOCEPHALIC Skin: Positive for: Normal Color, Warm Eye Exam: Positive for: EOMI, Normal appearance, PERRL Cardiovascular/Chest: Positive for: Regular Rate, Rhythm. Negative for: Murmur Respiratory: Positive for: Normal Breath Sounds. Negative for: Wheezing Gastrointestinal/Abdominal: Positive for: Tenderness (TTP LLQ). Negative for: Normal Exam Back: Positive for: Normal Inspection. Negative for: L CVA Tenderness, R CVA Tenderness Extremity: Positive for: Normal ROM Neurologic/Psych: Positive for: Alert, Oriented. Negative for: Motor/Sensory Deficits - Laboratory Results Result Diagrams: 07/03/17 13:36 07/03/17 15:12 - ECG O2 Sat by Pulse Oximetry: 97 (RA) Pulse Ox Interpretation: Normal - Progress ED Course And Treament: NS 1 LITER WIDE OPEN X 2 PEPCID 20 MG IV X 1 DOSE ZOFRAN 4 MG IV X 1 DOSE MORPHINE 4 MG IV X [address] ABD/PELVIS TO EVALUATE LLQ PAIN LIPASE NOTED 1300 SIGNIFICANT FOR ACUTE PANCREATITIS D/W DR. GROVER IMPRESSION: 1. Findings most compatible with recurrent or persistent pancreatitis. No pseudocyst identified or gross pancreatic chronic pattern at this time. Resolution of prior left pararenal and pericolic gutter fluid is noted. dilaudid 0.5 mg iv x 1 dose Repeat dilaudid 0.5 mg iv x 2nd dose prior to transport. Medical Decision Making Medical Decision Making: Impression: Pancreatitis Exacerbation Plan: * CT Scan Abd/Pelvis with IV Contrast * CMP * CBC * Alcohol * Lipase * Urinalysis * Pepcid 20 mg IV * Zofran 4 mg IV * NaCl 1000 mLs at 1000 mLs/hr * Reevaluation CT Scan Abdomen/Pelvis with IV Contrast FINDINGS: LOWER THORAX: Unremarkable. LIVER: Prominent diffuse fatty infiltration liver is again identified as well as hepatomegaly. No focal mass identified. No prominent intrahepatic biliary dilatation. Vascular enhancement appears stable. GALLBLADDER AND BILE DUCTS: Unremarkable. PANCREAS: The pancreas appears mildly prominent with peripancreatic reaction surrounding the body and tail and minimal at the level of the head and neck. No focal pancreatic mass or pancreatic duct dilatation is identified at this time. No pseudocyst or other local fluid collection is seen related. The pattern suggests recurrent or persistent pancreatitis. No obvious pancreatic calcifications are identified at this time however. Prior left pararenal/ pericolic gutter fluid has resolved. SPLEEN: Unremarkable. ADRENALS: Unremarkable. No mass. KIDNEYS AND URETERS: Unremarkable. No hydronephrosis. No solid mass. VASCULATURE: Unremarkable. No aortic aneurysm. BOWEL: Unremarkable. No obstruction. No gross mural thickening. APPENDIX: Normal appendix. PERITONEUM: Unremarkable. No free fluid. No free air. LYMPH NODES: Unremarkable. No enlarged lymph nodes. BLADDER: Unremarkable. REPRODUCTIVE: Unremarkable. BONES: Incidental advanced degenerative changes seen the left hip joint. OTHER FINDINGS: None. IMPRESSION: 1. Findings most compatible with recurrent or persistent pancreatitis. No pseudocyst identified or gross pancreatic chronic pattern at this time. Resolution of prior left pararenal and pericolic gutter fluid is noted. 2. Marked diffuse hepatic steatosis again evident. Stable hepatomegaly. Scribe Attestation: Documented by Sharmin Leyva, acting as a scribe for Rossana Villatoro PA-C. Provider Scribe Attestation: All medical record entries made by the Scribe were at my direction and personally dictated by me. I have reviewed the chart and agree that the record accurately reflects my personal performance of the history, physical exam, medical decision making, and the department course for this patient. I have also personally directed, reviewed, and agree with the discharge instructions and disposition. Disposition - Clinical Impression Clinical Impression: Pancreatitis, acute - Patient ED Disposition Is Patient to be Admitted: Yes - Disposition Disposition Time: 14:27 Condition: FAIR - Pt Status Changed To: Hospital Disposition Of: Inpatient - Admit Certification Admit to Inpatient:: After my assessment, the patient will require hospitalization for at least two midnights. This is because of the severity of symptoms shown, intensity of services needed, and/or the medical risk in this patient being treated as an outpatient.
[2017-07-03] MEDS ORDERED: Morphine 4 MG/ML VIAL IVP ONE (13:29)
[2017-07-03 13:51] LABS: BASO # 0.1 K/uL (0.0-0.2); BASO % 0.9 % (0.0-2.0); EOS # 0.2 K/uL (0.0-0.7); EOS % 1.7 % (0.0-4.0); HEMOGLOBIN 17.9 g/dL (12.0-18.0); LYMPH # 2.7 K/uL (1.0-4.3); LYMPH % 26.6 % (20.0-40.0); MEAN CORPUSCULAR HEMOGLOBIN 32.9 pg (27.0-31.0); MEAN CORPUSCULAR HGB CONC 36.5 g/dL (33.0-37.0); MONO # 0.7 K/uL (0.0-0.8); MONO % 7.4 % (0.0-10.0); NEUT # 6.4 K/uL (1.8-7.0); NEUT % 63.4 % (50.0-75.0); RBC 5.44 Mil/uL (4.40-5.90)
[2017-07-03] MEDS ORDERED: Morphine 4 MG/ML VIAL ONE (13:51)
[2017-07-03 14:23] LABS: ALB/GLOB RATIO 1.1 (1.0-2.1); ALBUMIN 5.2 g/dL (3.5-5.0); ALT/SGPT 65 U/L (21-72); AST/SGOT 91 U/L (17-59); BLOOD UREA NITROGEN 23 mg/dl (9-20); CALCIUM 9.4 mg/dL (8.4-10.2); GFR AFRICAN-AMERICAN > 60; GFR NON-AFRICAN AMERICAN > 60; LIPASE 1351 U/L (23-300)
[2017-07-03] MEDS ORDERED: Iohexol 300 100 ML IJ ONE (14:29)
[2017-07-03] MEDS ORDERED: Sodium Chloride 0.9% 50 ML IV ONE (14:29)
[2017-07-03] MEDS ORDERED: HYDROmorphone 0.5 mg/0.5 ml ISec IVP STA ×2 (14:55→16:18)
--- NOTE | 2017-07-03 14:59 | CT ---
PROCEDURE: CT Abdomen and Pelvis with contrast HISTORY: r/o diverticulitis COMPARISON: Abdomen pelvis CT with contrast 01/10/2017. TECHNIQUE: Contrast dose: Omnipaque 300, 95 cc Radiation dose: Total exam DLP = mGy-cm. This CT exam was performed using one or more of the following dose reduction techniques: Automated exposure control, adjustment of the mA and/or kV according to patient size, and/or use of iterative reconstruction technique. FINDINGS: LOWER THORAX: Unremarkable. LIVER: Prominent diffuse fatty infiltration liver is again identified as well as hepatomegaly. No focal mass identified. No prominent intrahepatic biliary dilatation. Vascular enhancement appears stable. GALLBLADDER AND BILE DUCTS: Unremarkable. PANCREAS: The pancreas appears mildly prominent with peripancreatic reaction surrounding the body and tail and minimal at the level of the head and neck. No focal pancreatic mass or pancreatic duct dilatation is identified at this time. No pseudocyst or other local fluid collection is seen related. The pattern suggests recurrent or persistent pancreatitis. No obvious pancreatic calcifications are identified at this time however. Prior left pararenal/ pericolic gutter fluid has resolved. SPLEEN: Unremarkable. ADRENALS: Unremarkable. No mass. KIDNEYS AND URETERS: Unremarkable. No hydronephrosis. No solid mass. VASCULATURE: Unremarkable. No aortic aneurysm. BOWEL: Unremarkable. No obstruction. No gross mural thickening. APPENDIX: Normal appendix. PERITONEUM: Unremarkable. No free fluid. No free air. LYMPH NODES: Unremarkable. No enlarged lymph nodes. BLADDER: Unremarkable. REPRODUCTIVE: Unremarkable. BONES: Incidental advanced degenerative changes seen the left hip joint. OTHER FINDINGS: None. IMPRESSION: 1. Findings most compatible with recurrent or persistent pancreatitis. No pseudocyst identified or gross pancreatic chronic pattern at this time. Resolution of prior left pararenal and pericolic gutter fluid is noted. 2. Marked diffuse hepatic steatosis again evident. Stable hepatomegaly.
[2017-07-03] MEDS ORDERED: HYDROmorphone 0.5 mg/0.5 ml ISec ONE (15:05)
[2017-07-03 15:37] LABS: SQUAMOUS EPITHIAL 1 /hpf (0-5); URINE BILIRUBIN NEGATIVE (NEGATIVE); URINE BLOOD NEGATIVE (NEGATIVE); URINE CLARITY SLIGHTY-CLOUDY (Clear); URINE COLOR YELLOW (YELLOW); URINE GLUCOSE (UA) >=500 mg/dL (Normal); URINE LEUKOCYTE ESTERASE NEG Leu/uL (Negative); URINE NITRATE NEGATIVE (NEGATIVE); URINE PROTEIN 100 mg/dL (NEGATIVE); URINE UROBILINOGEN 0.2-1.0 mg/dL (0.2-1.0)
[2017-07-03 16:04] LABS: ALB/GLOB RATIO 1.1 (1.0-2.1); ALBUMIN 4.6 g/dL (3.5-5.0); ALT/SGPT 79 U/L (21-72); AST/SGOT 59 U/L (17-59); BLOOD UREA NITROGEN 21 mg/dl (9-20); CALCIUM 8.9 mg/dL (8.4-10.2); GFR AFRICAN-AMERICAN > 60; GFR NON-AFRICAN AMERICAN > 60
[2017-07-03] MEDS ORDERED: Sodium Chloride 0.9% 1,000 ML IV SCH (16:45)
[2017-07-03] MEDS: Enoxaparin 40 mg Syringe SC SCH (20:57)
[2017-07-03] MEDS: Insulin Lispro (humaLOG) 100 Units/ml Inj SC SCH (22:03)
[2017-07-04] MEDS: Insulin Lispro (humaLOG) 100 Units/ml Inj SC SCH ×4 (06:56→21:35)
[2017-07-04 07:10] LABS: BASO % 0.4 % (0.0-2.0); EOS # 0.1 K/uL (0.0-0.7); EOS % 1.1 % (0.0-4.0); HEMOGLOBIN 15.3 g/dL (12.0-18.0); LYMPH # 1.8 K/uL (1.0-4.3); LYMPH % 15.5 % (20.0-40.0); MEAN CELL VOLUME 90.1 fl (80.0-94.0); MEAN CORPUSCULAR HEMOGLOBIN 31.3 pg (27.0-31.0); MEAN CORPUSCULAR HGB CONC 34.7 g/dL (33.0-37.0); MONO # 0.8 K/uL (0.0-0.8); MONO % 7.2 % (0.0-10.0); NEUT # 8.6 K/uL (1.8-7.0); NEUT % 75.8 % (50.0-75.0); NRBC % 0.1 % (0.0-0.0); RBC 4.89 Mil/uL (4.40-5.90); RED CELL DISTRIBUTION WIDTH 13.2 % (11.5-14.5); WHITE BLOOD COUNT 11.4 K/uL (4.8-10.8)
[2017-07-04 07:23] LABS: LDL CHOLESTEROL 31 mg/dL (0-129)
[2017-07-04 07:25] LABS: ALB/GLOB RATIO 1.2 (1.0-2.1); ALBUMIN 3.7 g/dL (3.5-5.0); ALT/SGPT 73 U/L (21-72); AST/SGOT 25 U/L (17-59); BLOOD UREA NITROGEN 19 mg/dl (9-20); CALCIUM 8.6 mg/dL (8.4-10.2); GFR AFRICAN-AMERICAN > 60; GFR NON-AFRICAN AMERICAN > 60; HDL CHOLESTEROL 40 MG/DL (30-70); LIPASE 2523 U/L (23-300)
[2017-07-04] MEDS: Enoxaparin 40 mg Syringe SC SCH ×2 (08:24→08:27)
--- NOTE | 2017-07-04 11:46 | CARD ---
APPROVED REPORT EKG Measurement Heart [id number] <Conclusion> Normal sinus rhythm Possible Left atrial enlargement T wave abnormality, consider lateral ischemia Prolonged QT Abnormal ECG
--- NOTE | 2017-07-04 23:14 | CP.PCM.HP ---
Past Patient History - Infectious Disease Hx of Infectious Diseases: None - Past Medical History & Family History Past Medical History?: Yes - Past Social History Smoking Status: Heavy Smoker > 10 Cigarettes Daily - CARDIAC Hx Cardiac Disorders: No - PULMONARY Hx Respiratory Disorders: No - NEUROLOGICAL Hx Neurological Disorder: No - RENAL Hx Kidney Stones: Yes - ENDOCRINE/METABOLIC Hx Endocrine Disorders: Yes (DM- no meds for 2 months) - HEMATOLOGICAL/ONCOLOGICAL Hx Blood Disorders: No Hx AIDS: No Hx Human Immunodeficiency Virus (HIV): No - INTEGUMENTARY Hx Dermatological Problems: No - MUSCULOSKELETAL/RHEUMATOLOGICAL Hx Musculoskeletal Disorders: No Hx Falls: No - GASTROINTESTINAL Hx Pancreatitis: Yes (X2) - GENITOURINARY/GYNECOLOGICAL Hx Genitourinary Disorders: No - PSYCHIATRIC Hx Psychophysiologic Disorder: No - SURGICAL HISTORY Hx Surgeries: Yes Other/Comment: Knee Surgery Right 8 years ago, dental surgery - ANESTHESIA Hx Anesthesia: Yes Hx Anesthesia Reactions: No Meds Allergies/Adverse Reactions: Allergies Allergy/AdvReac Type Severity Reaction Status Date / Time clams Allergy VOMITING Verified 07/03/17 12:46 metformin Allergy RASH Verified 07/03/17 12:46 sitagliptin [From Januvia] Allergy RASH Verified 07/03/17 12:46 Results - Vital Signs Recent Vital Signs: Last Vital Signs Temp 97.2 F L 07/04/17 16:08 Pulse 100 H 07/04/17 16:08 Resp 20 07/04/17 16:08 BP 132/83 07/04/17 16:08 Pulse Ox 98 07/04/17 16:08 - Labs Result Diagrams: 07/04/17 05:20 07/04/17 05:20 Labs: Laboratory Results - last 24 hr 07/04/17 07/04/17 07/04/17 05:20 05:20 06:12 WBC 11.4 H RBC 4.89 Hgb 15.3 D Hct 44.0 MCV 90.1 MCH 31.3 H MCHC 34.7 RDW 13.2 Plt Count 153 MPV 10.0 Neut % (Auto) 75.8 H Lymph % (Auto) 15.5 L [place] % (Auto) 7.2 Eos % (Auto) 1.1 Baso % (Auto) 0.4 Neut # 8.6 H Lymph # 1.8 [place] # 0.8 Eos # 0.1 Baso # 0.0 Sodium 133 Potassium 4.5 Chloride 101 Carbon Dioxide 25 Anion Gap 12 BUN 19 Creatinine 0.9 Est GFR ( Amer) > 60 Est GFR (Non-Af Amer) > 60 POC Glucose (mg/dL) 327 H Random Glucose 340 H Calcium 8.6 Total Bilirubin 0.7 AST 25 ALT 73 H Alkaline Phosphatase 72 Lactate Dehydrogenase 450 Total Protein 6.9 Albumin 3.7 Globulin 3.2 Albumin/Globulin Ratio 1.2 Triglycerides 1212 H Cholesterol 278 H LDL Cholesterol Direct 31 HDL Cholesterol 40 Lipase 2523 H TSH 3rd Generation 3.48 07/04/17 07/04/17 07/04/17 11:08 16:20 21:23 WBC RBC Hgb Hct MCV MCH MCHC RDW Plt Count MPV Neut % (Auto) Lymph % (Auto) [place] % (Auto) Eos % (Auto) Baso % (Auto) Neut # Lymph # [place] # Eos # Baso # Sodium Potassium Chloride Carbon Dioxide Anion Gap BUN Creatinine Est GFR ( Amer) Est GFR (Non-Af Amer) POC Glucose (mg/dL) 281 H 183 H 198 H Random Glucose Calcium Total Bilirubin AST ALT Alkaline Phosphatase Lactate Dehydrogenase Total Protein Albumin Globulin Albumin/Globulin Ratio Triglycerides Cholesterol LDL Cholesterol Direct HDL Cholesterol Lipase TSH 3rd Generation
[2017-07-05] MEDS: Dextrose 5%/0.9% NS 1,000 ML IV SCH ×3 (01:07→17:13)
[2017-07-05] MEDS: Insulin Lispro (humaLOG) 100 Units/ml Inj SC SCH ×4 (06:50→21:45)
[2017-07-05 07:21] LABS: BASO % 0.4 % (0.0-2.0); EOS # 0.2 K/uL (0.0-0.7); EOS % 1.8 % (0.0-4.0); HEMOGLOBIN 13.6 g/dL (12.0-18.0); LYMPH # 1.7 K/uL (1.0-4.3); MEAN CELL VOLUME 91.7 fl (80.0-94.0); MEAN CORPUSCULAR HEMOGLOBIN 30.8 pg (27.0-31.0); MEAN CORPUSCULAR HGB CONC 33.6 g/dL (33.0-37.0); MEAN PLATELET VOLUME 9.8 fl (7.2-11.7); MONO % 8.3 % (0.0-10.0); NEUT # 8.6 K/uL (1.8-7.0); NEUT % 74.5 % (50.0-75.0); RBC 4.41 Mil/uL (4.40-5.90); RED CELL DISTRIBUTION WIDTH 13.1 % (11.5-14.5); WHITE BLOOD COUNT 11.6 K/uL (4.8-10.8)
[2017-07-05 07:39] LABS: ALB/GLOB RATIO 1.2 (1.0-2.1); ALBUMIN 3.6 g/dL (3.5-5.0); ALT/SGPT 64 U/L (21-72); AST/SGOT 25 U/L (17-59); BLOOD UREA NITROGEN 12 mg/dl (9-20); CALCIUM 8.7 mg/dL (8.4-10.2); GFR AFRICAN-AMERICAN > 60; GFR NON-AFRICAN AMERICAN > 60; HDL CHOLESTEROL 37 MG/DL (30-70); LIPASE 846 U/L (23-300)
[2017-07-05 07:44] LABS: LDL CHOLESTEROL 53 mg/dL (0-129)
[2017-07-05 08:22] VITALS: RESP 20
[2017-07-05] MEDS: Enoxaparin 40 mg Syringe SC SCH (09:50)
[2017-07-05] MEDS: guaiFENesin DM 100 mg-10 mg/5 ml UD PO PRN (21:26)
[2017-07-06] MEDS: Dextrose 5%/0.9% NS 1,000 ML IV SCH ×3 (02:15→10:53)
[2017-07-06] MEDS: Insulin Lispro (humaLOG) 100 Units/ml Inj SC SCH ×3 (07:42→17:47)
[2017-07-06] MEDS: Enoxaparin 40 mg Syringe SC SCH (08:50)
[2017-07-06] MEDS: guaiFENesin DM 100 mg-10 mg/5 ml UD PO PRN (08:52)
[2017-07-06 15:36] VITALS: BP 134/90; PULSE 88; TEMP 97.8; O2SAT 97
[2017-07-06 16:59] LABS: BASO % 0.5 % (0.0-2.0); EOS # 0.3 K/uL (0.0-0.7); EOS % 4.2 % (0.0-4.0); HEMOGLOBIN 13.6 g/dL (12.0-18.0); LYMPH # 2.3 K/uL (1.0-4.3); MEAN CELL VOLUME 91.5 fl (80.0-94.0); MEAN CORPUSCULAR HEMOGLOBIN 31.5 pg (27.0-31.0); MEAN CORPUSCULAR HGB CONC 34.4 g/dL (33.0-37.0); MEAN PLATELET VOLUME 9.8 fl (7.2-11.7); MONO # 0.7 K/uL (0.0-0.8); MONO % 8.2 % (0.0-10.0); NEUT # 4.6 K/uL (1.8-7.0); NEUT % 58.1 % (50.0-75.0); NRBC % 0.1 % (0.0-0.0); RBC 4.32 Mil/uL (4.40-5.90)
[2017-07-06 17:16] LABS: ALB/GLOB RATIO 1.1 (1.0-2.1); ALBUMIN 3.7 g/dL (3.5-5.0); ALT/SGPT 63 U/L (21-72); AST/SGOT 26 U/L (17-59); BLOOD UREA NITROGEN 8 mg/dl (9-20); CALCIUM 9.2 mg/dL (8.4-10.2); GFR AFRICAN-AMERICAN > 60; GFR NON-AFRICAN AMERICAN > 60; LIPASE 325 U/L (23-300)
[2017-07-07] MEDS ORDERED: GlipiZIDE 10 mg SR Tab PO SCH (08:00)
== END 2017-07-06 18:23 | disposition home or self-care (01) | DRG 440 ==
LOC: H.ER 12:39 → H.ERHOLD 14:26 → H.MEDSURG1 16:55
PROVIDERS: ADMIT Internal Medicine; ATTEND Internal Medicine
DX: K85.90 Acute pancreatitis without necrosis or infection, unspecified (principal); E11.9 Type 2 diabetes mellitus without complications; F17.210 Nicotine dependence, cigarettes, uncomplicated; Z79.82 Long term (current) use of aspirin; Z87.442 Personal history of urinary calculi

== ENCOUNTER 2017-10-17 14:16 | Emergency (ER) | payer OTHER ==
[2017-10-17 14:37] VITALS: BMI 32.3
[2017-10-17 14:40] VITALS: TEMP 98.5; O2SAT 100
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
[2017-10-17 16:57] VITALS: BP 139/84; PULSE 91; RESP 18
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
--- NOTE | 2017-10-18 11:43 | RAD ---
HISTORY: trauma COMPARISON: No prior FINDINGS: BONES: Normal. No fracture. JOINTS: Normal. No osteoarthritis. SOFT TISSUE: Normal. OTHER FINDINGS: None . IMPRESSION: Normal Bone Xray.
== END 2017-10-17 16:58 | disposition home or self-care (01) ==
LOC: H.ER 14:16
DX: S62.112A Displaced fracture of triquetrum [cuneiform] bone, left wrist, initial encounter for closed fracture (principal); E11.9 Type 2 diabetes mellitus without complications; Z87.442 Personal history of urinary calculi; E78.00 Pure hypercholesterolemia, unspecified; F17.210 Nicotine dependence, cigarettes, uncomplicated; Z79.82 Long term (current) use of aspirin; V19.88XA Pedal cyclist (driver) (passenger) injured in other specified transport accidents, initial encounter; Y93.55 Activity, bike riding

== ENCOUNTER 2017-12-14 04:49 | Observation (INO) | payer OTHER ==
[2017-12-14 04:49] VITALS: BMI 32.3
[2017-12-14] MEDS ORDERED: Iohexol 240 (50 ml) PO ONE (05:31)
--- NOTE | 2017-12-14 05:37 | ED PDOC ---
HPI: Abdomen Chief Complaint (Provider): Left sided abdominal pain History Per: Patient History/Exam Limitations: no limitations Onset/Duration Of Symptoms: Hrs Outside of [place] travel?: No Current Symptoms Are (Timing): Still Present Pain Scale Rating Of: 10 Location Of Pain/Discomfort: LUQ, LLQ Quality Of Discomfort: "Pain" Associated Symptoms: Nausea, Vomiting. denies: Fever, Chills, Diarrhea, Back Pain, Chest Pain, Constipation, Urinary Symptoms Exacerbating Factors: Movement Alleviating Factors: None Last Bowel Movement: Yesterday Additional History Per: Patient <Gretel Berman - Last Filed: 12/14/17 06:18> <Pete Campa Y - Last Filed: 12/17/17 06:33> Time Seen by Provider: 12/14/17 05:18 Chief Complaint (Nursing): Abdominal Pain Additional Complaint(s): 47 y/o male with PMHx of Chronic pancreatitis(as per patient secondary to alcoholism/diagnosed in 2009), diabetes, and HLD presents complaining of left sided abdominal pain that started at 2 am this morning. Patient states that initially the pain was less intense, but started getting worse progressively, and now is 10/10, aggravates with movements, and denies alleviating factors. Pain feels like one of his acute episode of pancreatitis. Reports two non bloody non bilious emesis associated with the pain, and distended abdomen. Last BM was yesterday and reported as normal. Last time he passed gasses per rectum was yesterday morning. States he stopped drinking alcohol since he was diagnosed in 2009. Denies recent alcohol intake. Denies fevers, chills, cough, chest pain, SOB, urinary symptoms. PMD: Dr. Robert (Gretel Berman) Supervising Attending Note - Supervising Attending Note The Documented history was done by the: Physician Real Estate Financial Analyst The documented physical exam was done by the: Physician Real Estate Financial Analyst The documented procedures were done by the: Physician Real Estate Financial Analyst EM CAVEAT: Acuity of Condition - Attestation: I have personally seen and examined this patient.: Yes I have fully participated in the care of the patient.: Yes I have reviewed all pertinent clinical information: Yes <Pete Campa Y - Last Filed: 12/17/17 06:33> Past Medical History - Medical History PMH: Diabetes, Hypercholesterolemia, Kidney Stones, Pancreatitis (X2) Denies: HIV - Surgical History Other surgeries: Right knee surgery - Family History Family History: States: Unknown Family Hx, CAD - Social History Current smoker - smoking cessation education provided: No Ex-Smoker (has not smoked in the last 12 months): No Alcohol: None Drugs: Denies <Gretel Berman - Last Filed: 12/14/17 06:18> <Pete Campa - Last Filed: 12/17/17 06:33> Vital Signs: Last Vital Signs Temp 98.1 F 12/16/17 08:40 Pulse 96 H 12/16/17 08:40 Resp 20 12/16/17 08:40 BP 126/88 12/16/17 08:40 Pulse Ox 96 12/16/17 08:40 - Home Medications Home Medications: Ambulatory Orders Medication Instructions Recorded Aspirin [Ecotrin] 81 mg PO DAILY 07/03/17 Fenofibrate [Tricor] 48 mg PO DAILY 07/03/17 Insulin Detemir [Levemir] 10 units SC DAILY #1 vial 12/16/17 - Allergies Allergies/Adverse Reactions: Allergies Allergy/AdvReac Type Severity Reaction Status Date / Time clams Allergy VOMITING Verified 10/17/17 14:37 metformin Allergy RASH Verified 10/17/17 14:37 sitagliptin [From Januvia] Allergy RASH Verified 10/17/17 14:37 Review of Systems ROS Statement: Except As Marked, All Systems Reviewed And Found Negative (as per HPI) <Gretel Berman - Last Filed: 12/14/17 06:18> Physical Exam - Reviewed Nursing Documentation Reviewed: Yes Vital Signs Reviewed: Yes - Physical Exam Appears: Positive for: Non-toxic, Uncomfortable Head Exam: Positive for: ATRAUMATIC, NORMOCEPHALIC Skin: Positive for: Normal Color, Warm, Dry. Negative for: Jaundice Eye Exam: Positive for: Normal appearance. Negative for: Conjunctival injection , Scleral icterus Cardiovascular/Chest: Positive for: Regular Rate, Rhythm. Negative for: Edema, Gallop, Bradycardia Respiratory: Positive for: Normal Breath Sounds. Negative for: Decreased Breath Sounds, Accessory Muscle Use, Crackles, Rales, Rhonchi, Wheezing, Respiratory Distress Gastrointestinal/Abdominal: Positive for: Bowel Sounds (present), Soft, Tenderness (tender to palpation of LUQ and LLQ), Distended (mild distened, obese abdomen). Negative for: Guarding, Rebound Back: Positive for: Normal Inspection. Negative for: L CVA Tenderness, R CVA Tenderness Extremity: Negative for: Pedal Edema, Calf Tenderness Neurologic/Psych: Positive for: Alert, Oriented (x3) <Gretel Berman - Last Filed: 12/14/17 06:18> - Laboratory Results Result Diagrams: 12/14/17 05:51 - ECG O2 Sat by Pulse Oximetry: 97 <Gretel Berman - Last Filed: 12/14/17 06:18> - Laboratory Results Result Diagrams: 12/15/17 06:00 12/15/17 06:00 <Pete Campa - Last Filed: 12/17/17 06:33> Medical Decision Making <Gretel Berman - Last Filed: 12/14/17 06:18> <Pete Campa - Last Filed: 12/17/17 06:33> Medical Decision Making: Left sided abdominal pain -CBC, CMP, lipase -UA -EKG -Abd & pelvic CT w/ PO & IV contrast -pain control -Zofran ODT for nausea/vomiting -re-evaluation case discussed with Dr. Campa Re-evaluation -CBC showed leukocytosis, Hgb 17 -UA positive for glucosuria -will give NS 500 ml bolus once -pain improving -Pending CT scan case discussed and signed over to Dr. Campa (Gretel Berman) 0700 Patient signed out to Dr. Moran pending CT. Scribe Attestation: Documented by Carly Dunham acting as a scribe for Pete Campa MD. Scribe Attestation: All medical record entries made by the Scribe were at my direction and personally dictated by me. I have reviewed the chart and agree that the record accurately reflects my personal performance of the history, physical exam, medical decision making, and the department course for this patient. I have also personally directed, reviewed, and agree with the discharge instructions and disposition. (Pete Campa) Disposition - Patient ED Disposition Is Patient to be Admitted: Transfer of Care Discussed With Dr.: Pete Campa - Disposition Disposition Time: 06:20 Patient Signed Over To: Pete Campa <Gretel Berman - Last Filed: 12/14/17 06:18> - Patient ED Disposition Is Patient to be Admitted: Transfer of Care - Disposition Disposition Time: 07:00 Patient Signed Over To: King Moran Handoff Comments: pending CT <Pete Campa - Last Filed: 12/17/17 06:33> - Clinical Impression Clinical Impression: Abdominal pain, Pancreatitis - Disposition Condition: FAIR
[2017-12-14] MEDS ORDERED: Morphine 4 MG/ML VIAL ONE (05:51)
[2017-12-14 06:01] LABS: SQUAMOUS EPITHIAL 2 /hpf (0-5); URINE BILIRUBIN NEGATIVE (NEGATIVE); URINE BLOOD NEGATIVE (NEGATIVE); URINE CLARITY CLOUDY (Clear); URINE COLOR YELLOW (YELLOW); URINE GLUCOSE (UA) >=500 mg/dL (Normal); URINE LEUKOCYTE ESTERASE NEG Leu/uL (Negative); URINE PROTEIN 30 mg/dL (NEGATIVE); URINE UROBILINOGEN 0.2-1.0 mg/dL (0.2-1.0)
[2017-12-14 06:03] LABS: BASO # 0.1 K/uL (0.0-0.2); BASO % 0.5 % (0.0-2.0); EOS # 0.1 K/uL (0.0-0.7); HEMOGLOBIN 17.1 g/dL (12.0-18.0); LYMPH # 2.9 K/uL (1.0-4.3); LYMPH % 19.8 % (20.0-40.0); MEAN CELL VOLUME 90.6 fl (80.0-94.0); MEAN CORPUSCULAR HEMOGLOBIN 33.3 pg (27.0-31.0); MEAN CORPUSCULAR HGB CONC 36.7 g/dL (33.0-37.0); MEAN PLATELET VOLUME 10.3 fl (7.2-11.7); MONO # 1.2 K/uL (0.0-0.8); MONO % 8.3 % (0.0-10.0); NEUT # 10.2 K/uL (1.8-7.0); NEUT % 70.4 % (50.0-75.0); NRBC % 0.1 % (0.0-0.0); RBC 5.14 Mil/uL (4.40-5.90); RED CELL DISTRIBUTION WIDTH 13.2 % (11.5-14.5); WHITE BLOOD COUNT 14.5 K/uL (4.8-10.8)
[2017-12-14] MEDS ORDERED: Sodium Chloride 0.9% 500 ML IV ONE (06:17)
--- NOTE | 2017-12-14 07:09 | ED PDOC ---
- Laboratory Results Result Diagrams: 12/14/17 05:51 12/14/17 08:00 - ECG O2 Sat by Pulse Oximetry: 97 (RA) Pulse Ox Interpretation: Normal Medical Decision Making Medical Decision Making: Pt signed out to me by Dr. Campa @ 07:00, pending CT. Scribe Attestation: Documented by Puneet Terry, acting as a scribe for King Moran MD. Provider Scribe Attestation: All medical record entries made by the Scribe were at my direction and personally dictated by me. I have reviewed the chart and agree that the record accurately reflects my personal performance of the history, physical exam, medical decision making, and the department course for this patient. I have also personally directed, reviewed, and agree with the discharge instructions and disposition. Disposition - Clinical Impression Clinical Impression: Abdominal pain, Pancreatitis - POA Present On Arrival: None - Disposition Referrals: Ahmet Roebrt MD [Primary Care Provider] - Disposition: Admitted as In-Patient Disposition Time: 09:04 Condition: FAIR Forms: [employer] (Nepali)
[2017-12-14] MEDS ORDERED: Sodium Chloride 0.9% 50 ML IV ONE (08:03)
[2017-12-14] MEDS ORDERED: Iohexol 300 100 ML IJ ONE (08:03)
[2017-12-14 08:21] LABS: BLOOD UREA NITROGEN 18 mg/dl (9-20); GFR AFRICAN-AMERICAN > 60; GFR NON-AFRICAN AMERICAN > 60
[2017-12-14] MEDS ORDERED: HYDROmorphone 0.5 mg/0.5 ml ISec ONE (08:30)
[2017-12-14 08:55] LABS: BLOOD UREA NITROGEN 19 mg/dl (9-20); GFR AFRICAN-AMERICAN > 60; GFR NON-AFRICAN AMERICAN > 60
[2017-12-14 08:56] LABS: ALBUMIN 4.8 g/dL (3.5-5.0); ALT/SGPT 23 U/L (21-72); AST/SGOT 113 U/L (17-59); CALCIUM 8.9 mg/dL (8.4-10.2); LIPASE 994 U/L (23-300)
[2017-12-14] MEDS ORDERED: HYDROmorphone 0.5 mg/0.5 ml ISec IVP STA (09:32)
--- NOTE | 2017-12-14 10:17 | CT ---
PROCEDURE: CT Abdomen and Pelvis with contrast HISTORY: Abd pain/vomiting COMPARISON: None. TECHNIQUE: Following oral and intravenous contrast administration, a CT examination of the abdomen and pelvis performed from the domes of the diaphragms to the symphysis pubis with reformatted datasets provided not only axial but also sagittal and coronal series. Contrast dose: Omnipaque 300, 95 cc Radiation dose: Total exam DLP = 1168.81 mGy-cm. This CT exam was performed using one or more of the following dose reduction techniques: Automated exposure control, adjustment of the mA and/or kV according to patient size, and/or use of iterative reconstruction technique. FINDINGS: LOWER THORAX: Unremarkable. LIVER: There is hepatomegaly and diffuse hepatic steatosis reiterated without focal mass or intrahepatic biliary dilatation appreciable. GALLBLADDER AND BILE DUCTS: Gallbladder is distended but otherwise unremarkable appearing once again. No interval radiodense cholelithiasis. Common bile duct does not appear significantly dilated. No radiodense choledocholithiasis. PANCREAS: There is prominence of the pancreatic head and neck without definable mass appreciated. Prominent peripancreatic reaction is seen surrounding the pancreatic head and neck as well with extension into the right para renal space minimally. No definitive pattern of necrosis of the pancreas is evident or pseudocyst formation. SPLEEN: Unremarkable. ADRENALS: Unremarkable. No mass. KIDNEYS AND URETERS: Unremarkable. No hydronephrosis. No solid mass. VASCULATURE: Unremarkable. No aortic aneurysm. BOWEL: Stomach is collapsed. No bowel obstruction is evident or local pericolic/ perienteric reaction. Overall appearance of the bowel is stable. Limited fecal loading is seen in various large-bowel segments. APPENDIX: Normal appendix. PERITONEUM: Unremarkable. No free fluid. No free air. LYMPH NODES: Unremarkable. No enlarged lymph nodes. BLADDER: Unremarkable. REPRODUCTIVE: Unremarkable. BONES: No acute fracture. OTHER FINDINGS: None. IMPRESSION: 1. Findings most compatible with pancreatitis on acute or subacute basis. No pseudocyst formation or ascites. No radiodense choledocholithiasis. Gallbladder is distended but otherwise unremarkable. 2. Reiteration of hepatic steatosis and hepatomegaly without focal mass or biliary tree dilatation.
[2017-12-14 15:41] LABS: CALCIUM 9.3 mg/dL (8.4-10.2); GFR AFRICAN-AMERICAN > 60; GFR NON-AFRICAN AMERICAN > 60
[2017-12-14 15:43] LABS: BLOOD UREA NITROGEN 16 mg/dl (9-20)
[2017-12-14] MEDS: Lactated Ringer's 1,000 ML IV SCH ×2 (16:03→21:43)
[2017-12-14] MEDS: Insulin Regular 100 units/ml SC SCH ×2 (16:30→22:00)
[2017-12-15] MEDS: Lactated Ringer's 1,000 ML IV SCH ×2 (05:05→12:38)
[2017-12-15 06:25] LABS: HEMOGLOBIN 14.8 g/dL (12.0-18.0); MEAN CELL VOLUME 90.6 fl (80.0-94.0); MEAN CORPUSCULAR HEMOGLOBIN 32.3 pg (27.0-31.0); MEAN CORPUSCULAR HGB CONC 35.6 g/dL (33.0-37.0); RBC 4.6 Mil/uL (4.40-5.90); RED CELL DISTRIBUTION WIDTH 13.1 % (11.5-14.5); WHITE BLOOD COUNT 10.3 K/uL (4.8-10.8)
[2017-12-15] MEDS: Insulin Regular 100 units/ml SC SCH ×4 (06:32→21:40)
[2017-12-15 06:40] LABS: ALBUMIN 3.5 g/dL (3.5-5.0); ALT/SGPT 45 U/L (21-72); AST/SGOT 27 U/L (17-59); BLOOD UREA NITROGEN 15 mg/dl (9-20); CALCIUM 8.9 mg/dL (8.4-10.2); GFR AFRICAN-AMERICAN > 60; GFR NON-AFRICAN AMERICAN > 60; LIPASE 316 U/L (23-300)
--- NOTE | 2017-12-15 09:31 | CARD ---
APPROVED REPORT EKG Measurement Heart [id number] <Conclusion> Normal sinus rhythm T wave abnormality, consider lateral ischemia Abnormal ECG
--- NOTE | 2017-12-15 10:52 | CP.PCM.HP ---
<Mckay Alatorre - Last Filed: 12/15/17 10:45> History of Present Illness - History of Present Illness History of Present Illness: CC: abdominal pain HPI: 47 y/o man w/ pmh of Chronic pancreatitis, NIDDM2, and HLD presents to ED w/ complaints of left sided abdominal pain. Patient reports pain started early yesterday morning. Patient stated initially the pain was less intense, but progressively worsened, aggravated with movements, and denies alleviating factors. Pain feels similar to his previous acute episode of pancreatitis. Had normal bowel movement today. Patient states that he stopped drinking alcohol since he was diagnosed in 2009. Patient denies recent alcohol intake, fevers, chills, cough, headaches, chest pain, SOB, or dysuria. PMD: Dr. Robert PMH: Chronic pancreatitis, NIDDM2, and HLD meds: see med list allergies: metformin, januvia PSH: right knee surgery 30 years ago Fam: CAD SOC: smokes 1/2 pack/day, denies alcohol intake since 2009, and denies illegal drugs ROS: 12 points assessed and negative unless otherwise reported in HPI Present on Admission - Present on Admission Any Indicators Present on Admission: Yes History of DVT/PE: No History of Uncontrolled Diabetes: Yes Urinary Catheter: No Decubitus Ulcer Present: No Review of Systems - Review of Systems All systems: reviewed and no additional remarkable complaints except - Constitutional Constitutional: absent: Chills, Fever - EENT Eyes: absent: Change in Vision - Cardiovascular Cardiovascular: absent: Chest Pain - Respiratory Respiratory: absent: Cough, Dyspnea - Gastrointestinal Gastrointestinal: As Per HPI, Abdominal Pain, Nausea, Vomiting. absent: Diarrhea, Hematochezia, Melena - Genitourinary Genitourinary: absent: Dysuria - Integumentary Integumentary: absent: Rash - Neurological Neurological: absent: Dizziness, Headaches Past Patient History - Infectious Disease Hx of Infectious Diseases: None - Past Medical History & Family History Past Medical History?: Yes - Past Social History Smoking Status: Light Smoker < 10 Cigarettes Daily - CARDIAC Hx Hypercholesterolemia: Yes - PULMONARY Hx Respiratory Disorders: No - NEUROLOGICAL Hx Neurological Disorder: No - RENAL Hx Kidney Stones: Yes - ENDOCRINE/METABOLIC Hx Endocrine Disorders: Yes Hx Diabetes Mellitus Type 2: Yes - HEMATOLOGICAL/ONCOLOGICAL Hx Human Immunodeficiency Virus (HIV): No - INTEGUMENTARY Hx Dermatological Problems: No - MUSCULOSKELETAL/RHEUMATOLOGICAL Hx Musculoskeletal Disorders: No Hx Falls: No - GASTROINTESTINAL Hx Pancreatitis: Yes (X2) - GENITOURINARY/GYNECOLOGICAL Hx Genitourinary Disorders: No - PSYCHIATRIC Hx Psychophysiologic Disorder: No - SURGICAL HISTORY Hx Surgeries: Yes Other/Comment: Knee Surgery Right 1987, dental surgery - ANESTHESIA Hx Anesthesia: Yes Hx Anesthesia Reactions: No Meds Allergies/Adverse Reactions: Allergies Allergy/AdvReac Type Severity Reaction Status Date / Time clams Allergy VOMITING Verified 10/17/17 14:37 metformin Allergy RASH Verified 10/17/17 14:37 sitagliptin [From Juluvia] Allergy RASH Verified 10/17/17 14:37 Physical Exam - Constitutional Appears: Non-toxic, No Acute Distress - Head Exam Head Exam: ATRAUMATIC, NORMAL INSPECTION, NORMOCEPHALIC - Eye Exam Eye Exam: Normal appearance - ENT Exam ENT Exam: Mucous Membranes Moist - Neck Exam Neck exam: Positive for: Full Rom. Negative for: Tenderness - Respiratory Exam Respiratory Exam: Clear to Auscultation Bilateral. absent: Accessory Muscle Use , Decreased Breath Sounds, Rales, Rhonchi, Wheezes, Respiratory Distress - Cardiovascular Exam Cardiovascular Exam: REGULAR RHYTHM, RRR. absent: Tachycardia - GI/Abdominal Exam GI & Abdominal Exam: Normal Bowel Sounds, Soft. absent: Distended, Tenderness - Extremities Exam Extremities exam: Positive for: normal inspection. Negative for: calf tenderness - Neurological Exam Neurological exam: Alert, Normal Gait, Oriented x3 - Skin Skin Exam: Dry, Intact, Normal Color, Warm Results - Vital Signs Recent Vital Signs: Last Vital Signs Temp 98 F 12/15/17 08:00 Pulse 87 12/15/17 08:00 Resp 20 12/15/17 08:00 BP 132/81 12/15/17 08:00 Pulse Ox 98 12/15/17 08:00 - Labs Result Diagrams: 12/15/17 06:00 12/15/17 06:00 Labs: Laboratory Results - last 24 hr 12/14/17 12/14/17 12/14/17 14:30 16:22 22:50 WBC RBC Hgb Hct MCV MCH MCHC RDW Plt Count Sodium 137 Potassium 4.8 Chloride 100 Carbon Dioxide 25 Anion Gap 17 BUN 16 Creatinine 0.7 L Est GFR ( Amer) > 60 Est GFR (Non-Af Amer) > 60 POC Glucose (mg/dL) 197 H 133 H Random Glucose 221 H Calcium 9.3 Total Bilirubin AST ALT Alkaline Phosphatase Total Protein Albumin Globulin Albumin/Globulin Ratio Lipase 12/15/17 12/15/17 06:00 06:00 WBC 10.3 RBC 4.60 Hgb 14.8 D Hct 41.7 MCV 90.6 MCH 32.3 H MCHC 35.6 RDW 13.1 Plt Count 164 Sodium 139 Potassium 4.0 Chloride 102 Carbon Dioxide 29 Anion Gap 12 BUN 15 Creatinine 0.8 Est GFR ( Amer) > 60 Est GFR (Non-Af Amer) > 60 POC Glucose (mg/dL) Random Glucose 192 H Calcium 8.9 Total Bilirubin 1.0 AST 27 ALT 45 Alkaline Phosphatase 68 Total Protein 6.9 Albumin 3.5 D Globulin 3.4 Albumin/Globulin Ratio 1.0 Lipase 316 H Assessment & Plan (1) Chronic pancreatitis Status: Acute (2) Pancreatitis, acute Status: Acute - Assessment and Plan (Free Text) Plan: afebrile, non-tachycardic, normotensive currently pain free acute pnacreatitis seen on CT abdomen lipase on admission 994, decreased to 316 IVF LR 1 L @ 150mL/hr pain management: morphine 1 mg IV Q4h (moderate) and morphine 2 mg IV Q4h ( severe) advance diet as tolerated, currently liquid diet monitor for acute changes <Jeffery Bentley - Last Filed: 12/15/17 21:11> Results - Vital Signs Recent Vital Signs: Last Vital Signs Temp 98.3 F 12/15/17 16:03 Pulse 105 H 12/15/17 16:03 Resp 18 12/15/17 16:03 BP 130/91 H 12/15/17 16:03 Pulse Ox 99 12/15/17 16:03 - Labs Result Diagrams: 12/15/17 06:00 12/15/17 06:00 Labs: Laboratory Results - last 24 hr 12/14/17 12/15/17 12/15/17 22:50 05:26 06:00 WBC 10.3 RBC 4.60 Hgb 14.8 D Hct 41.7 MCV 90.6 MCH 32.3 H MCHC 35.6 RDW 13.1 Plt Count 164 Sodium Potassium Chloride Carbon Dioxide Anion Gap BUN Creatinine Est GFR ( Amer) Est GFR (Non-Af Amer) POC Glucose (mg/dL) 133 H 160 H Random Glucose Calcium Total Bilirubin AST ALT Alkaline Phosphatase Total Protein Albumin Globulin Albumin/Globulin Ratio Lipase 12/15/17 12/15/17 12/15/17 06:00 10:57 15:30 WBC RBC Hgb Hct MCV MCH MCHC RDW Plt Count Sodium 139 Potassium 4.0 Chloride 102 Carbon Dioxide 29 Anion Gap 12 BUN 15 Creatinine 0.8 Est GFR ( Amer) > 60 Est GFR (Non-Af Amer) > 60 POC Glucose (mg/dL) 237 H 181 H Random Glucose 192 H Calcium 8.9 Total Bilirubin 1.0 AST 27 ALT 45 Alkaline Phosphatase 68 Total Protein 6.9 Albumin 3.5 D Globulin 3.4 Albumin/Globulin Ratio 1.0 Lipase 316 H Assessment & Plan - Assessment and Plan (Free Text) Plan: I was present during evaluation and discussed with Dr Celi chavarria plans of care will start Glipizide ( as he cannot tolerate DDP4 and metformin) May also need insulin
[2017-12-15] MEDS: Lactulose 10 gm/15 ml Syrup PO SCH ×2 (12:36→16:25)
[2017-12-15] MEDS ORDERED: Insulin Detemir 100 Units/ml Inj SC SCH (22:00)
[2017-12-16] MEDS: Lactated Ringer's 1,000 ML IV SCH ×3 (00:06→08:32)
[2017-12-16] MEDS: Insulin Regular 100 units/ml SC SCH (06:29)
[2017-12-16] MEDS: Lactulose 10 gm/15 ml Syrup PO SCH (08:29)
[2017-12-16 08:41] VITALS: BP 126/88; PULSE 96; RESP 20; TEMP 98.1; O2SAT 96
--- NOTE | 2017-12-16 12:52 | CP.PCM.DIS ---
Provider - Provider Date of Admission: 12/14/17 09:01 Attending physician: Jeffery Bentley MD Primary care physician: Ahmet Robert MD Time Spent in preparation of Discharge (in minutes): 15 Diagnosis - Discharge Diagnosis (1) Pancreatitis, acute Status: Acute (2) Chronic pancreatitis Status: Chronic Hospital Course - Lab Results Lab Results: Most Recent Lab Values WBC 10.3 K/uL (4.8-10.8) 12/15/17 06:00 RBC 4.60 Mil/uL (4.40-5.90) 12/15/17 06:00 Hgb 14.8 g/dL (12.0-18.0) D 12/15/17 06:00 Hct 41.7 % (35.0-51.0) 12/15/17 06:00 MCV 90.6 fl (80.0-94.0) 12/15/17 06:00 MCH 32.3 pg (27.0-31.0) H 12/15/17 06:00 MCHC 35.6 g/dL (33.0-37.0) 12/15/17 06:00 RDW 13.1 % (11.5-14.5) 12/15/17 06:00 Plt Count 164 K/uL (130-400) 12/15/17 06:00 MPV 10.3 fl (7.2-11.7) 12/14/17 05:51 Neut % (Auto) 70.4 % (50.0-75.0) 12/14/17 05:51 Lymph % (Auto) 19.8 % (20.0-40.0) L 12/14/17 05:51 Riley % (Auto) 8.3 % (0.0-10.0) 12/14/17 05:51 Eos % (Auto) 1.0 % (0.0-4.0) 12/14/17 05:51 Baso % (Auto) 0.5 % (0.0-2.0) 12/14/17 05:51 Neut # (Auto) 10.2 K/uL (1.8-7.0) H 12/14/17 05:51 Lymph # (Auto) 2.9 K/uL (1.0-4.3) 12/14/17 05:51 Riley # (Auto) 1.2 K/uL (0.0-0.8) H 12/14/17 05:51 Eos # (Auto) 0.1 K/uL (0.0-0.7) 12/14/17 05:51 Baso # (Auto) 0.1 K/uL (0.0-0.2) 12/14/17 05:51 Sodium 139 mmol/l (132-148) 12/15/17 06:00 Potassium 4.0 MMOL/L (3.6-5.0) 12/15/17 06:00 Chloride 102 mmol/L (98-107) 12/15/17 06:00 Carbon Dioxide 29 mmol/L (22-30) 12/15/17 06:00 Anion Gap 12 (10-20) 12/15/17 06:00 BUN 15 mg/dl (9-20) 12/15/17 06:00 Creatinine 0.8 mg/dl (0.8-1.5) 12/15/17 06:00 Est GFR ( Amer) > 60 12/15/17 06:00 Est GFR (Non-Af Amer) > 60 12/15/17 06:00 POC Glucose (mg/dL) 171 mg/dL (65-110) H 12/16/17 11:17 Random Glucose 192 mg/dL (75-110) H 12/15/17 06:00 Calcium 8.9 mg/dL (8.4-10.2) 12/15/17 06:00 Total Bilirubin 1.0 mg/dl (0.2-1.3) 12/15/17 06:00 AST 27 U/L (17-59) 12/15/17 06:00 ALT 45 U/L (21-72) 12/15/17 06:00 Alkaline Phosphatase 68 U/L (38-126) 12/15/17 06:00 Total Protein 6.9 G/DL (6.3-8.2) 12/15/17 06:00 Albumin 3.5 g/dL (3.5-5.0) D 12/15/17 06:00 Globulin 3.4 gm/dL (2.2-3.9) 12/15/17 06:00 Albumin/Globulin Ratio 1.0 (1.0-2.1) 12/15/17 06:00 Lipase 197 U/L (23-300) 12/16/17 05:45 Urine Color Yellow (YELLOW) 12/14/17 05:51 Urine Clarity Cloudy (Clear) 12/14/17 05:51 Urine pH 5.0 (5.0-8.0) 12/14/17 05:51 Ur Specific Mooers 1.028 (1.003-1.030) 12/14/17 05:51 Urine Protein 30 mg/dL (NEGATIVE) 12/14/17 05:51 Urine Glucose (UA) >=500 mg/dL (Normal) 12/14/17 05:51 Urine Ketones Negative mg/dL (NEGATIVE) 12/14/17 05:51 Urine Blood Negative (NEGATIVE) 12/14/17 05:51 Urine Nitrate Negative (NEGATIVE) 12/14/17 05:51 Urine Bilirubin Negative (NEGATIVE) 12/14/17 05:51 Urine Urobilinogen 0.2-1.0 mg/dL (0.2-1.0) 12/14/17 05:51 Ur Leukocyte Esterase Neg Melany/uL (Negative) 12/14/17 05:51 Urine RBC (Auto) 3 /hpf (0-3) 12/14/17 05:51 Urine Microscopic WBC 2 /hpf (0-5) 12/14/17 05:51 Ur Squamous Epith Cells 2 /hpf (0-5) 12/14/17 05:51 Hyaline Casts 3-5 /hpf (0-2) H 12/14/17 05:51 - Hospital Course Hospital Course: 47 y/o man w/ pmh of Chronic pancreatitis, NIDDM2, and HLD admitted for acute pancreatitis. Patient CT abdomen showed pancreatitis correlating w/ elevated lipase. Patient was made NPO and given IVF LR. Patient improved and tolerated advancing diets. Patient reporting regular bowel movement and denies any abdominal pain. Patient denies headaches, chest pain, SOB, nausea, vomiting, diarrhea, dysuria, or fever. The patient has been seen, examined, and deemed medically fit for discharge home. The patient is discharged w/ insulin levemir to take at night. The patient is to follow up w/ PMD in 1-2 weeks. Discharge Exam - Head Exam Head Exam: ATRAUMATIC, NORMAL INSPECTION, NORMOCEPHALIC - Eye Exam Eye Exam: Normal appearance - ENT Exam ENT Exam: Mucous Membranes Moist - Neck Exam Neck exam: Full Rom - Respiratory Exam Respiratory Exam: Clear to PA & Lateral. absent: Accessory Muscle Use, Decreased Breath Sounds, Rales, Rhonchi, Wheezes, Respiratory Distress - Cardiovascular Exam Cardiovascular Exam: REGULAR RHYTHM, RRR. absent: Tachycardia - GI/Abdominal Exam GI & Abdominal Exam: Normal Bowel Sounds, Soft. absent: Distended, Tenderness - Extremities Exam Extremities exam: normal inspection - Neurological Exam Neurological exam: Alert, Normal Gait, Oriented x3 - Skin Skin Exam: Dry, Intact, Normal Color, Warm Discharge Plan - Discharge Medications Prescriptions: Insulin Detemir [Levemir] 10 units SC DAILY #1 vial - Follow Up Plan Condition: FAIR Disposition: HOME/ ROUTINE Instructions: Diabetes Diet , Pancreatitis (DC) Additional Instructions: pt. cleared for discharge to Home today by Rx for meds provided cont. low fat diet, monitor BG at home RN to instruct lnsulin administration prior to dc follow up with primary MD 1 week Referrals: Ahmet Robert MD [Primary Care Provider] -
== END 2017-12-16 11:13 | disposition home or self-care (01) ==
LOC: H.ER 04:49 → INTOOBSV 09:01 → H.ERHOLD 09:01 → H.MEDSURG1 14:39
PROVIDERS: ADMIT Family Medicine; ATTEND Family Medicine
DX: K85.90 Acute pancreatitis without necrosis or infection, unspecified (principal); E11.9 Type 2 diabetes mellitus without complications; E78.5 Hyperlipidemia, unspecified; F17.210 Nicotine dependence, cigarettes, uncomplicated; K86.1 Other chronic pancreatitis; Z91.013 Allergy to seafood; E78.00 Pure hypercholesterolemia, unspecified; R81 Glycosuria
CPT/HCPCS: 36415; 74177; 80053; 81003; 82565; 82948; 83690; 84520; 85025; 85027; 93005; 96361; 96374; 96375; 96376; 99283; C9113; G0378; J1170; J1885; J2270; J7040; J7120; Q9966; Q9967

== ENCOUNTER 2018-01-23 18:50 | Inpatient (IN) | payer OTHER ==
[2018-01-23 18:50] VITALS: BMI 32.3
--- NOTE | 2018-01-23 19:23 | ED PDOC ---
HPI: Abdomen Chief Complaint (Nursing): Abdominal Pain History Per: Patient History/Exam Limitations: no limitations Onset/Duration Of Symptoms: Hrs Outside of [place] travel?: No Current Symptoms Are (Timing): Still Present Context: Food Severity: Severe Location Of Pain/Discomfort: Epigastric, LUQ Quality Of Discomfort: Sharp, Cramping Associated Symptoms: Nausea, Vomiting, Chest Pain. denies: Fever, Chills, Diarrhea, Back Pain, Constipation, Urinary Symptoms Additional Complaint(s): Hx of DM, HLD, Pancreatitis presenting with abdominal pain, states that it started this AM while on a bike ride, states he took a nap to try and relieve the pain, woke up in the evening and the pain was worse, started feeling chest pain associated with it but no shortness of breath, states he then felt nauseated and had two episodes of non-bloody, non-bilious vomiting. States he had normal bowel movements today. States he did not drink any alcohol or do any drugs. States he doesn't think he has gallbladder issues. PMD: Dr. Robert GI: Doesn't know the name, doctor on "" Past Medical History Reviewed: Historical Data, Nursing Documentation, Vital Signs Vital Signs: Last Vital Signs Temp 98.2 F 01/24/18 04:31 Pulse 96 H 01/24/18 04:31 Resp 18 01/24/18 04:31 BP 141/83 01/24/18 04:31 Pulse Ox 97 01/24/18 04:31 - Medical History PMH: Diabetes, Hypercholesterolemia, Kidney Stones, Pancreatitis (X2) Denies: HIV - Family History Family History: States: Unknown Family Hx, CAD - Home Medications Home Medications: Ambulatory Orders Medication Instructions Recorded Aspirin [Ecotrin] 81 mg PO DAILY 07/03/17 Fenofibrate [Tricor] 48 mg PO DAILY 07/03/17 Insulin Detemir [Levemir] 10 units SC DAILY #1 vial 12/16/17 - Allergies Allergies/Adverse Reactions: Allergies Allergy/AdvReac Type Severity Reaction Status Date / Time clams Allergy VOMITING Verified 01/23/18 18:55 metformin Allergy RASH Verified 01/23/18 18:55 sitagliptin [From Januvia] Allergy RASH Verified 01/23/18 18:55 Review of Systems ROS Statement: Except As Marked, All Systems Reviewed And Found Negative Cardiovascular: Positive for: Chest Pain Gastrointestinal: Positive for: Nausea, Vomiting, Abdominal Pain Physical Exam - Reviewed Nursing Documentation Reviewed: Yes Vital Signs Reviewed: Yes - Physical Exam Appears: Positive for: Well, Non-toxic, No Acute Distress, Uncomfortable Head Exam: Positive for: ATRAUMATIC, NORMAL INSPECTION, NORMOCEPHALIC Skin: Positive for: Normal Color, Warm, DRY Eye Exam: Positive for: EOMI, Normal appearance, PERRL ENT: Positive for: Normal ENT Inspection Neck: Positive for: Normal, Painless ROM Cardiovascular/Chest: Positive for: Regular Rate, Rhythm Respiratory: Positive for: CNT, Normal Breath Sounds Gastrointestinal/Abdominal: Positive for: Normal Exam, Bowel Sounds (normal), Soft, Tenderness (TTP in LUQ, epig, L middle abdomen, slight in LLQ). Negative for: Organomegaly, Mass, Distended, Guarding, Rebound, Asicites Back: Positive for: Normal Inspection. Negative for: L CVA Tenderness, R CVA Tenderness Extremity: Positive for: Normal ROM Neurologic/Psych: Positive for: Alert, Oriented - Laboratory Results Result Diagrams: 01/23/18 19:25 01/23/18 19:25 - ECG ECG: Positive for: Interpreted By Me, Viewed By Me ECG Rhythm: Positive for: Normal QRS, Sinus Rhythm. Negative for: Normal ST Segment (TWI in I, AVF, lateral leads) O2 Sat by Pulse Oximetry: 99 Pulse Ox Interpretation: Normal Medical Decision Making Medical Decision MakinPM A/P: Hx of DM, HLD, Pancreatitis presenting with abdominal pain -patient is well appearing but uncomfortable, slight tachycardia, HR 94 on EKG -patient states this pain is typical of his pancreatitis pain -unlikely sbo given normal BM's and non surgical history, unlikely colitis/ enteritis -will get sono of pancreas/GB, labs, give fluids, pain medication -will re-eval 830PM -Lipase elevated, indicative of pancreatiits -Patient requiring high levels of pain medication -Case discussed with Dr. Robert who agrees with admission for pancreaetitis and uncontrollable pain Disposition - Clinical Impression Clinical Impression: Pancreatitis - Disposition Disposition Time: 20:30 Condition: FAIR
[2018-01-23] MEDS ORDERED: Lactated Ringer's 1,000 ML IV SCH ×2 (19:30→20:30)
[2018-01-23 19:37] LABS: BASO # 0.1 K/uL (0.0-0.2); BASO % 1.3 % (0.0-2.0); EOS # 0.2 K/uL (0.0-0.7); LYMPH # 3.3 K/uL (1.0-4.3); LYMPH % 35.6 % (20.0-40.0); MEAN CELL VOLUME 90.4 fl (80.0-94.0); MEAN PLATELET VOLUME 9.8 fl (7.2-11.7); MONO # 0.6 K/uL (0.0-0.8); MONO % 6.5 % (0.0-10.0); NEUT # 5.1 K/uL (1.8-7.0); NEUT % 54.6 % (50.0-75.0); NRBC % 0.1 % (0.0-0.0); RED CELL DISTRIBUTION WIDTH 12.8 % (11.5-14.5); WHITE BLOOD COUNT 9.3 K/uL (4.8-10.8)
[2018-01-23 19:52] LABS: BLOOD UREA NITROGEN 24 mg/dl (9-20); CALCIUM 9.2 mg/dL (8.4-10.2); GFR AFRICAN-AMERICAN > 60; GFR NON-AFRICAN AMERICAN > 60
[2018-01-23 19:57] LABS: LIPASE 3246 U/L (23-300)
[2018-01-23 20:43] LABS: MEAN CORPUSCULAR HEMOGLOBIN 32.2 pg (27.0-31.0)
[2018-01-23] MEDS ORDERED: HYDROmorphone 0.5 mg/0.5 ml ISec IVP STA (20:52)
[2018-01-23 20:53] LABS: RBC 4.85 Mil/uL (4.40-5.90)
[2018-01-23 20:55] LABS: HEMOGLOBIN 13.8 g/dL (12.0-18.0)
[2018-01-23 21:32] LABS: ALB/GLOB RATIO 1.3 (1.0-2.1); ALBUMIN 4.3 g/dL (3.5-5.0)
[2018-01-23 22:14] LABS: SQUAMOUS EPITHIAL 4 /hpf (0-5); URINE BACTERIA RARE (<OCC); URINE BILIRUBIN NEGATIVE (NEGATIVE); URINE BLOOD NEGATIVE (NEGATIVE); URINE CLARITY SLIGHTY-CLOUDY (Clear); URINE COLOR YELLOW (YELLOW); URINE GLUCOSE (UA) >=500 mg/dL (Normal); URINE LEUKOCYTE ESTERASE NEG Leu/uL (Negative); URINE PROTEIN NEGATIVE (NEGATIVE); URINE UROBILINOGEN 0.2-1.0 mg/dL (0.2-1.0)
[2018-01-23 22:34] LABS: BARBITURATES, UR NEGATIVE (NEGATIVE); BENZODIAZEPINES, UR NEGATIVE (NEGATIVE); OPIATES, UR POSITIVE (NEGATIVE); PHENCYCLIDINE, UR NEGATIVE (NEGATIVE)
[2018-01-24] MEDS: HYDROmorphone 1 mg/ml ISec IVP PRN ×3 (00:16→08:52)
[2018-01-24] MEDS: Dextrose 5%/0.9% NS 1,000 ML IV SCH ×3 (00:28→16:58)
[2018-01-24 07:10] LABS: HEMOGLOBIN 14.8 g/dL (12.0-18.0); MEAN CELL VOLUME 92.4 fl (80.0-94.0); MEAN CORPUSCULAR HEMOGLOBIN 32.3 pg (27.0-31.0); MEAN CORPUSCULAR HGB CONC 34.9 g/dL (33.0-37.0); RBC 4.59 Mil/uL (4.40-5.90); RED CELL DISTRIBUTION WIDTH 13.5 % (11.5-14.5); WHITE BLOOD COUNT 8.1 K/uL (4.8-10.8)
[2018-01-24 07:42] LABS: ALB/GLOB RATIO 1.3 (1.0-2.1); ALBUMIN 3.7 g/dL (3.5-5.0); ALT/SGPT 50 U/L (21-72); AST/SGOT 25 U/L (17-59); BLOOD UREA NITROGEN 22 mg/dl (9-20); CALCIUM 8.4 mg/dL (8.4-10.2); GFR AFRICAN-AMERICAN > 60; GFR NON-AFRICAN AMERICAN > 60
[2018-01-24] MEDS: Insulin Detemir 100 Units/ml Inj SC SCH (08:47)
--- NOTE | 2018-01-24 15:36 | US ---
Date of service: 01/23/2018 HISTORY: hx of pancreatitis, epig pain COMPARISON: None. TECHNIQUE: Sonographic evaluation of the right upper quadrant of the abdomen. FINDINGS: LIVER: Measures 22.7 cm in length. Diffusely increased echogenicity of the liver parenchyma. Consistent with fatty infiltration. Smooth contour. No mass. No biliary ductal dilatation. Normal hepatopetal portal venous flow demonstrated. GALLBLADDER: Unremarkable. No gallstones. COMMON BILE DUCT: Measures 4 mm. No stones. No dilatation. PANCREAS: Limited evaluation due to bowel gas obscuring the region of interest. RIGHT KIDNEY: Measures 12.4 cm in length. Normal echogenicity. No calculus, mass, or hydronephrosis. AORTA: No aneurysmal dilatation. IVC: Unremarkable. OTHER FINDINGS: None . IMPRESSION: Limited evaluation of pancreas. Hepatomegaly with fatty infiltration of the liver. No biliary obstruction.
--- NOTE | 2018-01-24 15:43 | CP.PCM.HP ---
History of Present Illness - History of Present Illness History of Present Illness: CC: Abdominal and Chest Pain History of Present Illness: A 47yoM with H/O DM, HLD with Predominatly TAG adn non-compliant to diet, and Recurrent Pancreatitis presenting with abdominal pain 04/14 at presentation improved today, states that it started yesterday while on a bike ride, states he took a nap to try and relieve the pain, woke up in the evening and the pain was worse, started feeling chest pain associated with it but no shortness of breath, states he then felt nauseated and had two episodes of non-bloody, non- bilious vomiting. States he had normal bowel movements today. States he did not drink any alcohol or do any drugs. States he doesn't think he has gallbladder issues. Denies fevr or chills. Present on Admission - Present on Admission Any Indicators Present on Admission: No Review of Systems - Review of Systems All systems: reviewed and no additional remarkable complaints except - Gastrointestinal Gastrointestinal: As Per HPI Past Patient History - Infectious Disease Hx of Infectious Diseases: None - Past Medical History & Family History Past Medical History?: Yes Past Family History: Reviewed and not pertinent - Past Social History Smoking Status: Current Some Days Smoker Alcohol: None Drugs: Denies - CARDIAC Hx Hypercholesterolemia: Yes - PULMONARY Hx Respiratory Disorders: No - NEUROLOGICAL Hx Neurological Disorder: No - HEENT Hx HEENT Problems: No - RENAL Hx Kidney Stones: Yes - ENDOCRINE/METABOLIC Hx Endocrine Disorders: Yes Hx Diabetes Mellitus Type 2: Yes - HEMATOLOGICAL/ONCOLOGICAL Hx Human Immunodeficiency Virus (HIV): No - INTEGUMENTARY Hx Dermatological Problems: No - MUSCULOSKELETAL/RHEUMATOLOGICAL Hx Musculoskeletal Disorders: No Hx Falls: No - GASTROINTESTINAL Hx Pancreatitis: Yes (X2) - GENITOURINARY/GYNECOLOGICAL Hx Genitourinary Disorders: No - PSYCHIATRIC Hx Psychophysiologic Disorder: No Hx Substance Use: No - SURGICAL HISTORY Hx Surgeries: Yes Other/Comment: Knee Surgery Right 1987, dental surgery - ANESTHESIA Hx Anesthesia: Yes Hx Anesthesia Reactions: No Hx Malignant Hyperthermia: No Has any member of the family had a problem w/ anesthesia?: No Meds Allergies/Adverse Reactions: Allergies Allergy/AdvReac Type Severity Reaction Status Date / Time clams Allergy VOMITING Verified 01/23/18 18:55 metformin Allergy RASH Verified 01/23/18 18:55 sitagliptin [From Januvia] Allergy RASH Verified 01/23/18 18:55 Physical Exam - Constitutional Appears: In Acute Distress - Head Exam Head Exam: ATRAUMATIC, NORMAL INSPECTION, NORMOCEPHALIC - Eye Exam Eye Exam: EOMI, Normal appearance, PERRL Pupil Exam: NORMAL ACCOMODATION, PERRL - ENT Exam ENT Exam: Mucous Membranes Moist, Normal Exam - Neck Exam Neck exam: Positive for: Normal Inspection - Respiratory Exam Respiratory Exam: Clear to Auscultation Bilateral, NORMAL BREATHING PATTERN - Cardiovascular Exam Cardiovascular Exam: Tachycardia, +S1, +S2 - GI/Abdominal Exam GI & Abdominal Exam: Guarding, Normal Bowel Sounds, Rebound, Tenderness. absent : Rigid - Extremities Exam Extremities exam: Positive for: normal capillary refill, normal inspection - Back Exam Back exam: FULL ROM, NORMAL INSPECTION - Neurological Exam Neurological exam: Alert, CN II-XII Intact, Normal Gait, Oriented x3, Reflexes Normal - Psychiatric Exam Psychiatric exam: Normal Affect, Normal Mood - Skin Skin Exam: Dry, Intact, Normal Color, Warm Results - Vital Signs Recent Vital Signs: Last Vital Signs Temp 98.0 F 01/24/18 12:45 Pulse 86 01/24/18 12:45 Resp 20 01/24/18 12:45 BP 128/79 01/24/18 12:45 Pulse Ox 94 L 01/24/18 12:45 - Labs Result Diagrams: 01/25/18 05:26 01/25/18 05:26 Labs: Laboratory Results - last 24 hr 01/23/18 01/23/18 01/23/18 19:25 19:25 19:25 WBC 9.3 RBC 4.85 Hgb 13.8 Hct 43.8 MCV 90.4 MCH 32.2 H MCHC 35.0 RDW 12.8 Plt Count 184 MPV 9.8 Neut % (Auto) 54.6 Lymph % (Auto) 35.6 [place] % (Auto) 6.5 Eos % (Auto) 2.0 Baso % (Auto) 1.3 Neut # (Auto) 5.1 Lymph # (Auto) 3.3 [place] # (Auto) 0.6 Eos # (Auto) 0.2 Baso # (Auto) 0.1 Sodium 137 Potassium 4.5 Chloride 101 Carbon Dioxide 22 Anion Gap 19 BUN 24 H Creatinine 0.8 Est GFR ( Amer) > 60 Est GFR (Non-Af Amer) > 60 Random Glucose 283 H Lactic Acid 1.5 Calcium 9.2 Total Bilirubin Direct Bilirubin AST ALT Alkaline Phosphatase Lactate Dehydrogenase 816 H Troponin I < 0.0120 Total Protein Albumin Globulin Albumin/Globulin Ratio Lipase 3246 H TSH 3rd Generation Urine Color Urine Clarity Urine pH Ur Specific Bly Urine Protein Urine Glucose (UA) Urine Ketones Urine Blood Urine Nitrate Urine Bilirubin Urine Urobilinogen Ur Leukocyte Esterase Urine RBC (Auto) Urine Microscopic WBC Ur Squamous Epith Cells Urine Bacteria Urine Opiates Screen Urine Methadone Screen Ur Barbiturates Screen Ur Phencyclidine Scrn Ur Amphetamines Screen U Benzodiazepines Scrn U Oth Cocaine Metabols U Cannabinoids Screen Alcohol, Quantitative < 10 01/23/18 01/23/18 01/23/18 21:18 21:45 21:45 WBC RBC Hgb Hct MCV MCH MCHC RDW Plt Count MPV Neut % (Auto) Lymph % (Auto) [place] % (Auto) Eos % (Auto) Baso % (Auto) Neut # (Auto) Lymph # (Auto) [place] # (Auto) Eos # (Auto) Baso # (Auto) Sodium Potassium Chloride Carbon Dioxide Anion Gap BUN Creatinine Est GFR ( Amer) Est GFR (Non-Af Amer) Random Glucose Lactic Acid Calcium Total Bilirubin 1.4 H Direct Bilirubin 1.0 H AST 57 ALT 51 Alkaline Phosphatase 84 Lactate Dehydrogenase Troponin I Total Protein 7.8 Albumin 4.3 Globulin 3.4 Albumin/Globulin Ratio 1.3 Lipase TSH 3rd Generation Urine Color Yellow Urine Clarity Slighty-cloudy Urine pH 6.0 Ur Specific Bly 1.028 Urine Protein Negative Urine Glucose (UA) >=500 Urine Ketones Negative Urine Blood Negative Urine Nitrate Negative Urine Bilirubin Negative Urine Urobilinogen 0.2-1.0 Ur Leukocyte Esterase Neg Urine RBC (Auto) 1 Urine Microscopic WBC 1 Ur Squamous Epith Cells 4 Urine Bacteria Rare Urine Opiates Screen Positive H Urine Methadone Screen Negative Ur Barbiturates Screen Negative Ur Phencyclidine Scrn Negative Ur Amphetamines Screen Negative U Benzodiazepines Scrn Negative U Oth Cocaine Metabols Negative U Cannabinoids Screen Negative Alcohol, Quantitative 01/24/18 01/24/18 07:00 07:00 WBC 8.1 RBC 4.59 Hgb 14.8 Hct 42.4 MCV 92.4 D MCH 32.3 H MCHC 34.9 RDW 13.5 Plt Count 149 MPV Neut % (Auto) Lymph % (Auto) [place] % (Auto) Eos % (Auto) Baso % (Auto) Neut # (Auto) Lymph # (Auto) [place] # (Auto) Eos # (Auto) Baso # (Auto) Sodium 140 Potassium 4.6 Chloride 106 Carbon Dioxide 27 Anion Gap 12 BUN 22 H Creatinine 0.8 Est GFR ( Amer) > 60 Est GFR (Non-Af Amer) > 60 Random Glucose 289 H Lactic Acid Calcium 8.4 Total Bilirubin 0.7 Direct Bilirubin AST 25 ALT 50 Alkaline Phosphatase 70 Lactate Dehydrogenase Troponin I < 0.0120 Total Protein 6.5 Albumin 3.7 Globulin 2.9 Albumin/Globulin Ratio 1.3 Lipase TSH 3rd Generation 2.75 Urine Color Urine Clarity Urine pH Ur Specific Bly Urine Protein Urine Glucose (UA) Urine Ketones Urine Blood Urine Nitrate Urine Bilirubin Urine Urobilinogen Ur Leukocyte Esterase Urine RBC (Auto) Urine Microscopic WBC Ur Squamous Epith Cells Urine Bacteria Urine Opiates Screen Urine Methadone Screen Ur Barbiturates Screen Ur Phencyclidine Scrn Ur Amphetamines Screen U Benzodiazepines Scrn U Oth Cocaine Metabols U Cannabinoids Screen Alcohol, Quantitative - Imaging and Cardiology US - abdomen Status: Report reviewed by me Additional comment: HISTORY: hx of pancreatitis, epig pain COMPARISON: None. TECHNIQUE: Sonographic evaluation of the right upper quadrant of the abdomen. FINDINGS: LIVER: Measures 22.7 cm in length. Diffusely increased echogenicity of the liver parenchyma. Consistent with fatty infiltration. Smooth contour. No mass. No biliary ductal dilatation. Normal hepatopetal portal venous flow demonstrated. GALLBLADDER: Unremarkable. No gallstones. COMMON BILE DUCT: Measures 4 mm. No stones. No dilatation. PANCREAS: Limited evaluation due to bowel gas obscuring the region of interest. RIGHT KIDNEY: Measures 12.4 cm in length. Normal echogenicity. No calculus, mass, or hydronephrosis. AORTA: No aneurysmal dilatation. IVC: Unremarkable. OTHER FINDINGS: None . IMPRESSION: Limited evaluation of pancreas. Hepatomegaly with fatty infiltration of the liver. No biliary obstruction. Assessment & Plan (1) Pancreatitis, acute Assessment and Plan: NPO IVF IV Pain Medication PRN Zofran PRN Monitor Lipase Level LDH CBC Status: Acute Priority: High (2) Hypertriglyceridemia Assessment and Plan: [place] Lipid Profile Status: Acute (3) Diabetes mellitus Assessment and Plan: with Hyperglycemia Levemir 10 Units QHS when Diet Resumed Accucheck q6hrs HgA1C Status: Chronic Priority: Medium
--- NOTE | 2018-01-24 15:50 | RAD ---
Date of service: 01/23/2018 HISTORY: chest pain COMPARISON: 08/16/2012 FINDINGS: LUNGS: No active pulmonary disease. PLEURA: No significant pleural effusion identified, no pneumothorax apparent. CARDIOVASCULAR: Normal. OSSEOUS STRUCTURES: No significant abnormalities. VISUALIZED UPPER ABDOMEN: Normal. OTHER FINDINGS: None. IMPRESSION: No active disease.
[2018-01-24] MEDS: Insulin Lispro (humaLOG) 100 Units/ml Inj SC SCH (22:25)
[2018-01-25 05:43] LABS: BASO % 0.5 % (0.0-2.0); EOS # 0.3 K/uL (0.0-0.7); EOS % 2.8 % (0.0-4.0); HEMOGLOBIN 14.2 g/dL (12.0-18.0); LYMPH # 2.6 K/uL (1.0-4.3); MEAN CELL VOLUME 92.6 fl (80.0-94.0); MEAN CORPUSCULAR HEMOGLOBIN 32.2 pg (27.0-31.0); MEAN CORPUSCULAR HGB CONC 34.8 g/dL (33.0-37.0); MEAN PLATELET VOLUME 9.4 fl (7.2-11.7); MONO # 0.9 K/uL (0.0-0.8); MONO % 9.3 % (0.0-10.0); NEUT # 5.8 K/uL (1.8-7.0); NEUT % 60.4 % (50.0-75.0); RBC 4.41 Mil/uL (4.40-5.90); WHITE BLOOD COUNT 9.6 K/uL (4.8-10.8)
[2018-01-25 06:05] LABS: LDL CHOLESTEROL 54 mg/dL (0-129)
[2018-01-25 06:11] LABS: ALB/GLOB RATIO 1.2 (1.0-2.1); ALBUMIN 3.7 g/dL (3.5-5.0); ALT/SGPT 44 U/L (21-72); AST/SGOT 24 U/L (17-59); BLOOD UREA NITROGEN 12 mg/dl (9-20); CALCIUM 8.7 mg/dL (8.4-10.2); GFR AFRICAN-AMERICAN > 60; GFR NON-AFRICAN AMERICAN > 60; HDL CHOLESTEROL 42 MG/DL (30-70); LIPASE 214 U/L (23-300)
[2018-01-25] MEDS: Insulin Lispro (humaLOG) 100 Units/ml Inj SC SCH ×2 (06:31→12:30)
[2018-01-25 08:40] VITALS: RESP 20
[2018-01-25] MEDS: Insulin Detemir 100 Units/ml Inj SC SCH (08:58)
[2018-01-25] MEDS ORDERED: Dextrose 5%/0.9% NS 1,000 ML IV SCH (09:00)
[2018-01-25 13:40] VITALS: BP 140/72; PULSE 98; TEMP 97.5; O2SAT 98
== END 2018-01-25 14:29 | disposition home or self-care (01) | DRG 440 ==
LOC: H.ER 18:50 → H.ERHOLD 21:15 → H.TEL 23:47
PROVIDERS: ADMIT Internal Medicine; ATTEND Internal Medicine
DX: K85.90 Acute pancreatitis without necrosis or infection, unspecified (principal); E78.1 Pure hyperglyceridemia; E11.65 Type 2 diabetes mellitus with hyperglycemia; E78.00 Pure hypercholesterolemia, unspecified; E78.5 Hyperlipidemia, unspecified; K76.0 Fatty (change of) liver, not elsewhere classified; F17.200 Nicotine dependence, unspecified, uncomplicated; Z91.11 Patient's noncompliance with dietary regimen